=== PATIENT | female | born 1955 | race Caucasian/White ===

== ENCOUNTER 2018-03-09 08:15 | Outpatient (CLI) | payer BC, SELFPAY ==
[2018-03-09 09:41] LABS: TSH (W/Ref FT4) 2.02 uIU/mL (0.358-3.74)
[2018-03-10 11:00] LABS: Thyroglobulin Antibody 34 U/mL (<61); Thyroperoxidase Antibody 199 U/mL (<61)
== END 2018-03-09 08:35 ==
PROVIDERS: PCP Family Medicine; Visit Provider Family Medicine
DX: R94.6 Abnormal results of thyroid function studies (principal)
CPT/HCPCS: 36415; 84443; 86376; 86800

== ENCOUNTER 2018-07-30 08:55 | Outpatient (CLI) | payer BC, SELFPAY ==
[2018-07-30 10:37] LABS: HCT 38.1 % (36.0-46.0); HGB 12.6 g/dL (12.0-15.5); Mean Corp. HGB Concentration 33.1 g/dL (32.0-36.0); Mean Corpuscular Hemoglobin 30.8 pg (27.0-33.0); Mean Corpuscular Volume 93.2 fL (80-95); Mean Platelet Volume 10.3 fL (8.0-11.0); Platelet Count 280 x1000/uL (130-400); RBC 4.09 m/cumm (4.00-5.20); RBC Distribution Width 13.2 % (11.7-14.6); White Blood Cell Count 4.14 k/cumm (4.4-10.8)
[2018-07-30 11:23] LABS: Anion Gap 5.7 mmol/L (3-11); BUN 14 mg/dL (7-18); CO2 31.3 mmol/L (21.0-32.0); CREATININE 0.73 mg/dL (0.55-1.02); Calcium 9.5 mg/dL (8.5-10.1); Chloride 99 mmol/L (98-107); Glucose 96 mg/dL (70-100); Potassium 4.7 mmol/L (3.5-5.1); Sodium 136 mmol/L (136-145)
== END 2018-07-30 09:15 ==
PROVIDERS: PCP Family Medicine; Visit Provider Student in an Organized Health Care Education/Training Program
DX: M25.552 Pain in left hip (principal); M16.12 Unilateral primary osteoarthritis, left hip; Z01.818 Encounter for other preprocedural examination
CPT/HCPCS: 80048; 85027; 86850; 86900; 86901

== ENCOUNTER 2018-07-30 11:00 | Outpatient (CLI) | payer BC, SELFPAY ==
--- NOTE | 2018-07-30 11:04 | DI.RAD_ITS ---
SYMPTOMS/DIAGNOSIS: PAIN LEFT HIP: Single view of the left hip was requested. Comparison is 12/02/17. There is joint space narrowing and periarticular spurring of the left hip. No dislocation is seen. The soft tissues are unremarkable.
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
== END 2018-07-30 11:20 ==
PROVIDERS: PCP Family Medicine; Visit Provider Physician Assistant Surgical
DX: M25.552 Pain in left hip (principal); M16.12 Unilateral primary osteoarthritis, left hip
CPT/HCPCS: 73501

== ENCOUNTER 2018-08-06 09:47 | Inpatient (IN) | payer BC, SELFPAY ==
[2018-08-06] VITALS (12 sets, daily range): BP systolic 106–154; BP diastolic 53–75; PULSE 58–87; RESP 12–19; TEMP 35.6–36.8; O2SAT 94–98
[2018-08-06] MEDS: oxyCODONE-CR 10 MG TABCR PO (10:01)
[2018-08-06] MEDS: Lactated Ringers 1,000 ML 80 ML IV ×2 (10:01→15:52)
[2018-08-06] MEDS: Celecoxib 200 MG CAP 400 MG PO (10:01)
[2018-08-06] MEDS: Acetaminophen 500 MG TAB 1000 MG PO ×3 (10:01→23:09)
--- NOTE | 2018-08-06 10:16 | DI.RAD_ITS ---
SYMPTOMS/DIAGNOSIS: PRIMARY OA LEFT HIP C-ARM FLUOROSCOPY: Fluoroscopy Time: 44.6secs Fluoroscopy was provided in the OR for Dr. Tracy. Hardcopy images show placement of a left hip prosthesis. The components appear well aligned.
[2018-08-06] MEDS: Bupivacaine 0.25% Pres-Free 30 ML VIAL (13:40)
[2018-08-06] MEDS: Ketorolac 30 MG/ML VIAL (13:40)
[2018-08-06] MEDS: Normal Saline 50 ML (13:40)
--- NOTE | 2018-08-06 14:37 | DI.RAD_ITS ---
SYMPTOMS/DIAGNOSIS: S/P LT GREG PELVIS: The exam was performed portably. The patient is now status post placement of a left hip prosthesis. The components appear well aligned.
[2018-08-06] MEDS: Normal Saline Flush 10 ML SYR IV (15:49)
--- NOTE | 2018-08-06 16:43 | PT.INIE ---
Date of service: 08/06/18 Time of Service: 16:10 PT Notes Inpatient Physical Therapy Evaluation Date: 08/06/2018 Referring Doctor: Dr. Tracy PT Orders: PT CONSULT: Status post left anterior GREG Precautions: Weightbearing as tolerated left lower extremity Patient Profile/Admitting Diagnosis: Patient admitted status post left anterior GREG performed this morning. Orders for up out of bed this afternoon. PMHX: Hyperthyroidism; vitamin D deficiency; insomnia; discoid lupus erythamatosus; hypertension Social History/Home Situation: Patient lives with her in [place]. Her home has 3 steps to enter. 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 Equipment Owned/DME: FW W, axillary crutches, cane Subjective: Clear states that she is feeling well. She continues to have some numbness through the left buttock, and is anxious to try walking. She states that she has a great deal of equipment at home due to her 's recent recovery from Guyon Yanes? syndrome, and she has made adjustments at home to address his change in mobility needs. Objective: General Observation: Resting comfortably in bed. Patient has a Abebe catheter in place. IV in right upper extremity. Mental Status: A and O x3 Pain: 0/10 ROM: Right Upper Extremity: WFL Left Upper Extremity: WFL Right Lower Extremity: WFL Left Lower Extremity: Patient functionally demonstrates hip flexion to 80+ degrees, abduction to 30 degrees. Strength: Right Upper Extremity: Grossly 5/5 Left Upper Extremity: Grossly 5/5 Right Lower Extremity: Hip Flexion 5/5. Quads 5/5. Ankle dorsiflexion 5/5. Left Lower Extremity: Quads 3/5 or greater. Ankle dorsiflexion 3/5 or greater. Resisted strength assessment was not performed due to acute postoperative status. Sensation: Intact distally Bed Mobility/Transfers: Supine to sit: Supervision with head of bed at 30 degrees Sit to stand: Supervision Stand to sit supervision with cues for safety Bed to chair: Supervision with FW W Gait: Patient ambulates 50 feet with FW W, CG, WBAT left lower extremity. She requires cues for equipment management and safety. Balance: Static Sitting: Normal Dynamic Sitting: Normal Static Standing: Good Dynamic Standing: Fair Special Tests: Mobility Limitations Standardized Measure [facility] 6 clicks Basic Mobility Inpatient Short Form: Raw Score: 19 CMS Score: 42% deficit Informed Consent/Education: Patient instructed in purpose of PT consult and plan of care. She received early gait training, and instruction in an independent exercise program for completion between PT sessions (glutes sets and L AQ). Assessment: Patient is a 63 year old female referred to physical therapy services with the diagnosis of left hip OA, status post anterior GREG performed 08/06/2018. Patient presents with clinical signs and symptoms consistent with acute postoperative status, as demonstrated by the following impairment level findings: 1. Decreased functional strength of left lower extremity 2. Gait impairments 3. Decreased balance 4. Decreased activity tolerance Impairments are contributing to the following functional limitations: 1. Decreased independence with transfers 2. Decreased tolerance to household distance ambulation 3. Unable to manage stairs Patient is assessed as a Low [id number] complexity based on the following: History: 63-year-old female with left hip OA, status post left anterior GREG performed earlier today. Medical history is noncontributory. Examination: Functional limitations as noted above Presentation: Stable low complexity Decision Making: Goals: Goals X1 week 1. Supine-Sit: Supervision with head of bed flat 2. Sit-Supine Supervision with head of bed flat 3. Sit-Stand : supervision 4. Stand-Sit : supervision 5. Bed-Chair supervision with FW W supervision with FW W 6. Chair-Bed 7. Gait: Supervision with FW W times 100 feet: 8. Stairs :Patient able to manage therapeutic stairs x3 with unilateral upper extremity support to rail and supervision Plan of Care/Treatment Plan: 1-2x/day, 7 days/week x 1 week. Plan of care has been reviewed with the SLICING MACHINE OPERATOR providing the service under Physical Therapy direction. Initiate Physical Therapy intervention for strengthening, bed mobility, transfers, gait, stairs, balance training, use of assistive device. DISCHARGE RECOMMENDATIONS: Home, with no equipment needs anticipated TREATMENT CODE/TIME: 1610?1635 ([id number]) Aminta Aflonso, PT, DPT [facility]
--- NOTE | 2018-08-06 16:49 | IN_ITS ---
Date of service: 08/06/18 Time of Service: 16:10 PT Notes Inpatient Physical Therapy Evaluation Date: 08/06/2018 Referring Doctor: Dr. Tracy PT Orders: PT CONSULT: Status post left anterior GREG Precautions: Weightbearing as tolerated left lower extremity Patient Profile/Admitting Diagnosis: Patient admitted status post left anterior GREG performed this morning. Orders for up out of bed this afternoon. PMHX: Hyperthyroidism; vitamin D deficiency; insomnia; discoid lupus erythamatosus; hypertension Social History/Home Situation: Patient lives with her in [place]. Her home has 3 steps to enter. 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 Equipment Owned/DME: FW W, axillary crutches, cane Subjective: Clear states that she is feeling well. She continues to have some numbness through the left buttock, and is anxious to try walking. She states that she has a great deal of equipment at home due to her 's recent recovery from Guyon Yanes? syndrome, and she has made adjustments at home to address his change in mobility needs. Objective: General Observation: Resting comfortably in bed. Patient has a Abebe catheter in place. IV in right upper extremity. Mental Status: A and O x3 Pain: 0/10 ROM: Right Upper Extremity: WFL Left Upper Extremity: WFL Right Lower Extremity: WFL Left Lower Extremity: Patient functionally demonstrates hip flexion to 80+ degrees, abduction to 30 degrees. Strength: Right Upper Extremity: Grossly 5/5 Left Upper Extremity: Grossly 5/5 Right Lower Extremity: Hip Flexion 5/5. Quads 5/5. Ankle dorsiflexion 5/5. Left Lower Extremity: Quads 3/5 or greater. Ankle dorsiflexion 3/5 or greater. Resisted strength assessment was not performed due to acute postoperative status. Sensation: Intact distally Bed Mobility/Transfers: Supine to sit: Supervision with head of bed at 30 degrees Sit to stand: Supervision Stand to sit supervision with cues for safety Bed to chair: Supervision with FW W Gait: Patient ambulates 50 feet with FW W, CG, WBAT left lower extremity. She requires cues for equipment management and safety. Balance: Static Sitting: Normal Dynamic Sitting: Normal Static Standing: Good Dynamic Standing: Fair Special Tests: Mobility Limitations Standardized Measure [facility] 6 clicks Basic Mobility Inpatient Short Form: Raw Score: 19 CMS Score: 42% deficit Informed Consent/Education: Patient instructed in purpose of PT consult and plan of care. She received early gait training, and instruction in an independent exercise program for completion between PT sessions (glutes sets and L AQ). Assessment: Patient is a 63 year old female referred to physical therapy s jorge with the diagnosis of left hip OA, status post anterior GREG performed 08/06/2018. Patient presents with clinical signs and symptoms consistent with acute postoperative status, as demonstrated by the following impairment level findings: 1. Decreased functional strength of left lower extremity 2. Gait impairments 3. Decreased balance 4. Decreased activity tolerance Impairments are contributing to the following functional limitations: 1. Decreased independence with transfers 2. Decreased tolerance to household distance ambulation 3. Unable to manage stairs Patient is assessed as a Low [id number] complexity based on the following: History: 63-year-old female with left hip OA, status post left anterior GREG performed earlier today. Medical history is noncontributory. Examination: Functional limitations as noted above Presentation: Stable low complexity Decision Making: Goals: Goals X1 week 1. Supine-Sit: Supervision with head of bed flat 2. Sit-Supine Supervision with head of bed flat 3. Sit-Stand : supervision 4. Stand-Sit : supervision 5. Bed-Chair supervision with FW W supervision with FW W 6. Chair-Bed 7. Gait: Supervision with FW W times 100 feet: 8. Stairs :Patient able to manage therapeutic stairs x3 with unilateral upper extremity support to rail and supervision Plan of Care/Treatment Plan: 1-2x/day, 7 days/week x 1 week. Plan of care has been reviewed with the DIRECTOR COMPENSATION providing the service under Physical Therapy direction. Initiate Physical Therapy intervention for strengthening, bed mobility, transfers, gait, stairs, balance training, use of assistive device. DISCHARGE RECOMMENDATIONS: Home, with no equipment needs anticipated TREATMENT CODE/TIME: 1610?1635 ([id number]) Aminta Alfonso, PT, DPT [facility]
--- NOTE | 2018-08-06 16:51 | NUR.NOTE ---
Nursing Note: Patient arrived to Med/surg via stretcher and admitted to room 206 at 1515
[2018-08-06] MEDS: Nicotine 14 MG/24 HR PATCH TD (17:13)
[2018-08-06] MEDS: Docusate Sodium 100 MG CAP PO (18:30)
[2018-08-06] MEDS: oxyCODONE 5 MG TAB PO (18:31)
[2018-08-06] MEDS: Aspirin E.C. 81 MG TABEC PO (19:13)
[2018-08-06] MEDS: Fluticasone NASAL SPRAY 16 GM BTL NS (19:13)
[2018-08-06] MEDS: Celecoxib 100 MG CAP 200 MG PO (19:14)
--- NOTE | 2018-08-06 21:13 | ROE_ITS ---
Date of service: 08/06/18 Time of Service: 15:04 Operative Note DATE OF PROCEDURE: 08/06/18 PRE-OP DIAGNOSIS: Left Hip Osteoarthritis POST-OP DIAGNOSIS: same PROCEDURE: Left Anterior Total Hip Arthroplasty SURGEON: Harlan Tracy PACKAGE SEALER: Kevin Lorenzo ANESTHESIA: GETA and spinal ESTIMATED BLOOD LOSS: 250 PATHOLOGY: none sent COMPLICATIONS: None Patient was transported to: PACU Patient's condition: stable Implants: 1. Depuy [place] Acetabular Component, 52 mm 2. Depuy Acetabular Liner, 52 x 36 mm 3. Depuy Corail coxa vara femoral Stem, Size 11 4. Depuy Altrx Ceramic Femoral Head, Size 36+1.5mm Indications: I have seen Alejandra in clinic for symptoms of hip arthritis, confirmed with radiographic findings. She has exhausted nonoperative methods and was having significant limitations in daily function and desired better function and less pain. I discussed the technical details of a hip replacement. I explained the risks of the procedure to include, but not limited to, bleeding, infection, pain, stiffness, fracture, damage to nerves and vessels, damage to muscles and tendons, loosening, instability, leg length inequality, need for repeat procedure, blood clot and cardiopulmonary demise. Despite these risks, Alejandra elected to proceed. Findings: There was significant signs of arthritis throughout the hip. Procedure Description: Alejandra was greeted in the preoperative holding area where the correct side was identified and marked. The consent was reviewed with the patient and signed. The history and physical was updated. All questions were answered. She was taken back to the operating room. A spinal anesthestic was then administered. The patient was placed into the supine position on the operating room table. The patient was then positioned onto the ARCH table. Both feet were wrapped with Webrill cotton wrap along with Coban. The feet were placed in specialized boots for the ARCH table, well seated within the boot and secured. SCDs were applied. The patient was then slid down onto a peroneal post and the nonoperative leg was secured in a leg edgar attached to the table. The operative side was placed into the ARCH table attachment and bed height and positioning was secured. A preoperative AP pelvis was obtained to serve as a reference for determining leg lengths. Prophylactic antibiotics in the form of cefazolin were administered. 1g of Tranxemic Acid was given intravenously within 30 minutes of incision. The left leg was then prepped with Chloraprep and draped in a standard fashion with a large shower-curtain type drape with Iodine impregnated skin protection. A timeout to confirm correct identity, side and site, procedure, allergies, anesthesia, and medical concerns was performed. An obliquely oriented incision was made starting lateral to the ASIS and running distal over the Tensor Fascia Ct (TFL) muscle belly toward the fibular head, approximately 10cm. The skin and soft tissue was dissected sharply, through Miesha?s fascia, and to the fascia of the TFL. With the fascia and superior border of the IT band identified, the fascia was incised with a new knife just above any perforators from the IT band. The TFL muscle belly was bluntly dissected away from the fascia and moved laterally. The fat between TFL and rectus was identified to ensure the dissection was not within the TFL. Blunt dissection created space between abductors and the capsule and retractor was placed over the lateral femoral neck. The fibers of the rectus femoris tendon were identified and these were freed from the anterior capsule. A second cobra retractor was placed around the medial femoral neck. The TFL was further retracted laterally to show the deep fascia. Careful dissection through this layer identified three main crossing vessels of the lateral femoral circumflex. These were cauterized in multiple locations and then cut without any noticeable bleeding. While there is not any significant motion or signs of pain at the time of the incision there was a noticeable contraction of some the proximal hip musculature at this time. Therefore, she was converted to a general anesthetic. The TFL was further released bluntly from the deep fascia to expose anterior hip capsule and fat the Tigre orthopaedic retractor was then placed beneath the TFL and against sartorius and medial soft tissues to protect and retract the soft tissues. A T-capsulotomy was then performed starting at the superior lateral acetabulum and moving distally to the intertrochanteric ridge. These capsular flaps were tagged with a No. 1 Ethibond and elevated from within. The capsular flaps were released to the shoulder of the lateral neck and to the lesser trochanter to give excellent visualization of the proximal femur. A neck osteotomy was performed using an oscillating saw based on preoperative templates. This cut started in the shoulder and of the lateral neck and exited medially. The saw was at all times directed medially to avoid injury to the greater trochanter. 6cm of traction was applied to the leg and the osteotomy opened. The femoral head was removed with a corkscrew, making sure to protect the TFL on its exit. This was measured on the back table to determing the starting reamer size. Portions of the rectus obscuring visualization were minimally elevated off the superior acetabulum. An anterior retractor was placed over the anterior wall between capsule and labrum. A posterior retractor was placed similarly. This provided excellent visualization. The contents of the cotyloid fossa were removed with electrocautery and the labrum was removed with a knife. There was significant chondromalacia of the superior acetabulum. Acetabular reaming began with a 44 mm reamer. This first reaming was directed anterior to posterior and medial to get down to the true floor. This was inspected and reamed until the true floor was reached. I then reamed sequentially up to a 51 mm reamer where good fit was obtained. The larger reamers were oriented based on anatomical reference of the anterior and lateral tellez to ensure proper abduction and anteversion. Positioning and size was confirmed with the fluoroscopy. A 52 mm Depuy [place] acetabular component was selected. The acetabulum was reamed around the periphery with the selected acetabular size to prevent a rim fit. The deep tissues were irrigated. The acetabular component was then impacted in a position of about 40-45 degrees of abduction and 15-20 degrees of anteversion, using the patient?s anatomy as the ultimate landmark. Fluoroscopy was used to confirm this. There was excellent recruitment coordinator of the acetabular component and the inserting handle was removed. On the fluoroscopy there appeared that the cup was not fully seated. However, this was inspected visually and there was no gap between the floor of the acetabulum and the back of the acetabular component. The acetabular liner, Depuy 52 x 36 mm polyethylene liner, was inserted and lined up with the tines of the acetabular component. There was no soft tissue interposition. The liner was then impacted into position and confirmed to be well-seated. A portion of the jamir-articular cocktail was then injected around the acetabulum into the capsule and periosteum. This cocktail consisted of 50cc of 0.25% Bupivicaine and 20cc of Exparel, expanded to a total of 120cc. Traction was released from the femur. The leg was rotated to 120 degrees. Any remaining medial capsule was released until the lesser trochanter was easily palpable. A Mendez retractor was placed medially. The lateral capsule was f urther released into the shoulder to allow access to the greater trochanter. A Mendez retractor was placed over the greater trochanter which allowed the trochanter to flip in front of the capsule for excellent exposure. The leg was brought down into maximal extension and 20 degrees of adduction while ensuring there was no impingement on the acetabulum. Any remnant capsule within the trochanter was released. Piriformis and obturator externis were identified and protected. There was excellent access to the proximal femur. The lateral neck remnant was removed with a rongeur. A blunt canal probe was used to identify the canal and trajectory for later broaching. A box osteotome initiated the broach course. A small curved rasp and a curved curette were used to work laterally. Broaching then began with a size 8 Corail broach. This was inserted manually around the trochanter and into the canal before mallet blows. The broach was seated to a few millimeters below the cut level based on the neck cut and the preoperative template. Sequential broaching was continued until a tight fit was obtained with good rotational control of the femur. A trial coxa vara neck was inserted along with a +1.5 trial head. The leg was brought out of extension and adduction and then reduced with traction and internal rotation. The leg was stable anteriorly in a position of 30 degrees of extension and 90 degrees of external rotation. Fluoroscopy was used to ensure there was no fracture and the stem was seated well. Leg lengths were checked with an AP pelvis and pelvic reference points. Once content with the desired offset and leg lengths, the leg was brought back into extension, external rotation and adduction. The periosteum and surrounding tissue was injected with remaining portion of the jamir-articular cocktail. The proximal femur was irrigated as well as the deep tissues. The Depuy Corail coxa vara stem, size 11, was then manually inserted into the proximal femur making sure to control rotation. It was then malleted into position with light blows, giving breaks to allow bone expansion and decrease risk of fracture. The selected Depuy Altrx Ceramic Head, size 36 mm, was then placed onto the clean and dry trunnion and secured with impaction onto the tapered fit. The leg was brought back out of extension and adduction and reduced with traction and internal rotation. Stability was confirmed with no shuck at 90 degrees of external rotation and 30 degrees of extension. No impingement through range of motion arc. Final x-ray images were obtained with fluoroscopy to confirm adequate positioning and no intraoperative fracture. The deep tissues were thoroughly irrigated with a pulse lavage. The second dose of TXA 1g was administered intravenously. The capsule was then reapproximated with the previously placed Ethibond sutures. The TFL fascia was finally closed with a No. 2 Stratafix, barbed suture. Deep tissues were then reapproximated with 0 Vicryl and a running 2-0 Vicryl. The skin was closed with a running 4-0 Monocryl in a subcuticular fashion. This was reinforced with skin glue. A Mepilex silver dressing was applied. At the end of the case, all counts were correct. Alejandra was transferred to the hospital bed without difficulty and suffering no apparent complication. She has a good prognosis. Physical therapy will start today and without restrictions, weight-bearing as tolerated. Aspirin 81mg BID will be used for DVT prophylaxis.
[2018-08-07 03:35] VITALS: BP 144/69; PULSE 77; RESP 18; TEMP 36.7; O2SAT 96
[2018-08-07 07:35] VITALS: BP 164/74; PULSE 74; RESP 16; TEMP 36.5; O2SAT 98
[2018-08-07] MEDS: Celecoxib 100 MG CAP 200 MG PO (07:54)
[2018-08-07] MEDS: Aspirin E.C. 81 MG TABEC PO (07:54)
[2018-08-07] MEDS: Lisinopril 20 MG TAB PO (07:54)
[2018-08-07] MEDS: Folic Acid 1 MG TAB PO (07:54)
[2018-08-07] MEDS: Acetaminophen 500 MG TAB 1000 MG PO (07:54)
[2018-08-07] MEDS: Pantoprazole 40 MG TABCR PO (07:54)
[2018-08-07] MEDS: Fluticasone NASAL SPRAY 16 GM BTL NS (07:55)
--- NOTE | 2018-08-07 09:23 | PDOC.CMIN ---
Care Management Initial Assess REASON FOR HOSPITALIZATION:: L Hip Osteoarthritis PAST MEDICAL HISTORY/PAST SURGICAL HISTORY:: Medical:Vitamin D deficiency (Chronic 06/18/08),Smoker (Chronic), Shingles (Resolved 03/03/16), Primary osteoarthritis of left hip (Chronic 12/02/17). Insomnia (Chronic), Glaucoma (Chronic 07/16/15), Discoid lupus erythematosus (Chronic 06/18/08), Cervical pain (neck) (Chronic 07/16/15). Benign hypertension (Chronic 08/17/12), Allergy (Chronic 01/08/15), Benign neoplasm of ovary (Resolved), Breast lump (Resolved), History of tobacco use (Resolved), Menopausal syndrome (Resolved), Shoulder pain (Resolved). Surgical: H/O hysterectomy for benign disease (Acute), H/O ovarian cystectomy (Resolved), History of hysterectomy for benign disease (Resolved). section (Resolved), H/O section (Resolved) PREVIOUS FUNCTIONAL STATUS/SOCIAL/FAMILY SUPPORTS:: Independent at baseline. Currently working correction officer as an educator. Lives with her at their home in [place]. CURRENT FUNCTIONAL STATUS:: Ambulating in hallway with PT. States she is doing very well and has little pain. Reports that she had been going to the gym and worked on strengthening to get ready for this surgery and feels is it has helped. ADVANCE DIRECTIVES:: None on file Has patient been provided with information about the portal?: No Did the patient sign up for the portal?: No CODE STATUS:: Full Code INSURANCE COVERAGE / FINANCIAL ISSUES:: BC/BS CURRENT HOME/COMMUNITY SERVICES/EQUIPMENT:: Has raised toilet seat, FWW and a cane. Has been attending [facility] and Mary is her Therapist. PRIMARY CARE PHYSICIAN:: [facility] Medical: Silvia Nath MD POTENTIAL DISCHARGE NEEDS:: OP PT at [facility], Follow up appointments with PCP and Surgeon. PATIENT/FAMILY EDUCATION NEEDS:: Discharge instructions. ANTICIPATED BARRIERS TO DISCHARGE:: None identified TRANSPORTATION:: Private car PLAN:: Alejandra will return home when medically cleared for discharge. She has all of the equipment needed already at home. Preference is for outpatient PT at [facility] in [place] and a referral will be needed. , Sampson, will transport. Readmission - Within the Past 30 Days Yes or No: N
--- NOTE | 2018-08-07 10:10 | INITIAL_ITS ---
Care Management Initial Assess REASON FOR HOSPITALIZATION:: L Hip Osteoarthritis PAST MEDICAL HISTORY/PAST SURGICAL HISTORY:: Medical:Vitamin D deficiency (Chronic 06/18/08),Smoker (Chronic), Shingles (Resolved 03/03/16), Primary osteoarthritis of left hip (Chronic 12/02/17). Insomnia (Chronic), Glaucoma (Chronic 07/16/15), Discoid lupus erythematosus (Chronic 06/18/08), Cervical pain (neck) (Chronic 07/16/15). Benign hypertension (Chronic 08/17/12), Allergy (Chronic 01/08/15), Benign neoplasm of ovary (Resolved), Breast lump (Resolved), History of tobacco use (Resolved), Menopausal syndrome (Resolved), Shoulder pain (Resolved). Surgical: H/O hysterectomy for benign disease (Acute), H/O ovarian cystectomy (Resolved), History of hysterectomy for benign disease (Resolved). section (Resolved), H/O section (Resolved) PREVIOUS FUNCTIONAL STATUS/SOCIAL/FAMILY SUPPORTS:: Independent at baseline. Currently working stamping operator as an educator. Lives with her at their home in [place]. CURRENT FUNCTIONAL STATUS:: Ambulating in hallway with PT. States she is doing very well and has little pain. Reports that she had been going to the gym and worked on strengthening to get ready for this surgery and feels is it has helped. ADVANCE DIRECTIVES:: None on file Has patient been provided with information about the portal?: No Did the patient sign up for the portal?: No CODE STATUS:: Full Code INSURANCE COVERAGE / FINANCIAL ISSUES:: BC/BS CURRENT HOME/COMMUNITY SERVICES/EQUIPMENT:: Has raised toilet seat, FWW and a cane. Has been attending [facility] and Mary is her Therapist. PRIMARY CARE PHYSICIAN:: [facility] Medical: Silvia Nath MD POTENTIAL DISCHARGE NEEDS:: OP PT at [facility], Follow up appointments with PCP and Surgeon. PATIENT/FAMILY EDUCATION NEEDS:: Discharge instructions. ANTICIPATED BARRIERS TO DISCHARGE:: None identified TRANSPORTATION:: Private car PLAN:: Alejandra will return home when medically cleared for discharge. She has all of the equipment needed already at home. Preference is for outpatient PT at [facility] in [place] and a referral will be needed. , Sampson, will transport. Readmission - Within the Past 30 Days Yes or No: N
[2018-08-07] MEDS: oxyCODONE 5 MG TAB PO (10:35)
--- NOTE | 2018-08-07 11:23 | PT.INTREAT ---
Date of service: 08/07/18 Time of Service: 09:00 PT Notes Inpatient Physical Therapy Treatment Note [facility] Date: 08/07/18 PRECAUTIONS:WBAT on left SUBJECTIVE: Indicated she suffers from AGUILAR often. Has one today that she thinks is due to not sleeping well. Stated she was warned that she may experience a AGUILAR today by hospital staff prior to surgery. Stated that her left leg feels longer than the right. OBJECTIVE: PAIN: Tolerable. Surprised hip feels so good today with walking and stairs activity. BED MOBILITY/TRANSFERS Supine-sit: SBA Sit-supine: SBA Sit-stand: SBA Stand-sit: SBA GAIT Assistive Device: FWW Weight bearing: WBAT on left Assist: CGA Distance: 20' x2 and 75' x 1 Up/ down 2-6 inch and 3-4 inch stairs with one hand rail and one cane with SBA. Has crutches at home, is to bring them in with him. Did not arrive prior to writing of this note. Indicated she feels good about using crutches, practiced with them prior to admission and plans to use walker anyway. THEREX: Reviewed HEP as per protocol. Able to demonstrate all supine and seated exercises while in PT dept today. See flow sheet for details. ASSESSMENT: Tolerated today's session well, despite AGUILAR pain. PLAN: Hopes to be discharged from hospital today. Feels she will eat and sleep better there. TREATMENT CODE/TIME: 9:00 to 9:30 (30'), TP x 1, TA x 1
--- NOTE | 2018-08-07 11:47 | W.PM.DS.N ---
Date of service: 08/07/18 Time of Service: 11:47 DS: Diagnosis Discharge Diagnosis (1) Primary osteoarthritis of left hip: Status: Chronic Discharge Plan Disposition Patient Disposition: HOME Condition: Good Discharge Details Reason For Visit: LEFT HIP DJD Admit Date/Time: 08/06/18 09:47 Admit Provider: Harlan Tracy Attending Provider: Harlan Tracy Primary Care Provider: Silvia Nath Hospital Course Hospital Course: Patient was admitted to the medical/surgical floor following the procedure. It was tolerated well without any notable medical, surgical, or anesthetic complications. Mobilization began postoperatively. The valente catheter was removed and voiding spontaneously. Vitals were stable. Physical therapy worked with the patient and was cleared for discharge home. No acute medical issues. She did have concerns that her left leg was olonger than the right. I scrutinized the x-ray and the exam and she does appear to be about 4-5mm longer. Home Meds and New Rx's Prescriptions: New celecoxib 200 mg capsule 200 mg PO BID PRN (Reason: pain) Qty: 60 RF: 1 acetaminophen 500 mg tablet 1,000 mg PO Q8H PRN (Reason: pain) Qty: 90 RF: 3 oxycodone 5 mg tablet 5 mg PO Q4H Qty: 18 RF: 0 aspirin [Aspir-Low] 81 mg tablet,delayed release (DR/EC) 81 mg PO BID Qty: 60 RF: 0 Continued fluticasone propionate [Flonase Allergy Relief] 50 mcg/actuation spray,suspension 2 spray HERSON BID RF: 0 cholecalciferol (vitamin D3) 1,000 UNIT capsule 1,000 unit PO DAILY RF: 0 lidocaine [Lidoderm] 1 EACH adhesive patch,medicated 1 ea Topical DAILY PRNQty: 30 RF: 12 folic acid 1 MG tablet 1 mg PO DAILY RF: 0 lisinopril 20 mg tablet 20 mg PO DAILY Qty: 90 RF: 11 clotrimazole 1 % Cream 1 applic TOPICAL BID PRNRF: 0 brimonidine 0.2 % Drops 1 drp OPHTHALMIC (EYE) BID RF: 0 Discharge Instructions Additional Instructions: Dr. Tracy?s Total Hip Discharge Instructions Activity: The most important activity is to walk. You should try to take short walks a few times a day. You have no restrictions on movement or positioning, but do not try to force what you do. You will find some stiffness and weakness with hip flexion (lifting your knee). Do not try to strengthen this too early, continue to practice walking and stairs and this will come. - Outpatient physical therapy can be helpful to help return you to a normal gait and improve your flexibility and strength. This can start around 2 weeks. For some patients, it?s not necessary. Usually this is determined at the time of discharge or at the first post-operative visit. - You should wear the BENJI hose on both legs for 4 weeks. Dressing: Keep the surgical dressing in place for at least one week. After the first week it may be removed and replace with light gauze and tape or nothing. It may get wet after 3 days but avoid soaking the dressing. If it gets wet, just lightly pat dry. It is important to always keep some gauze between skin folds, especially when you are sitting. Spend some time with the wound exposed when you are lying flat as the incision does wrinkle onto itself. Medications: - You should take Tylenol and an anti-inflammatory Celebrex as your primary pain control medications - You may also take Tylenol PM at night to help with sleep, but do not exceed 4000mg of Tylenol in a day - You have been prescribed a stronger pain medication Oxycodone for breakthrough pain, take as needed as prescribed. - You will be taking Aspirin 81mg twice a day for DVT prevention unless instructed otherwise. - If you have constipation you should take Colace or Miralax (both [id number]). It takes most people 3-4 days to have a bowel movement. Follow-up: 2 weeks Referrals: Harlan Tracy MD [ [facility] STAFF PHYSICIAN] - Activity:: Activity as Tolerated Equipment/Supplies:: No Equipment Needed Diet:: As Tolerated Discharge Orders Discharge Orders: Discharge Order (Routine); Ordered 08/07/18 Ordered By: Harlan Tracy DS: Data Vitals/I&O Vitals and I&O: Vital Signs Temperature 36.5 C 08/07/18 07:35 Temperature Source Tympanic 08/07/18 07:35 Pulse 74 08/07/18 07:35 Pulse Rhythm Regular 08/07/18 07:30 Respiratory Rate 16 08/07/18 07:35 Respiratory Effort Non-Labored 08/07/18 07:30 Respiratory Depth Normal 08/07/18 07:30 Respiratory Pattern Normal 08/07/18 07:30 Blood Pressure 164/74 H 08/07/18 07:35 Pulse Oximetry 98 08/07/18 07:35 Respiratory End-tidal CO2 27 08/06/18 14:26 Oxygen Delivery Method Room Air 08/07/18 07:35 Oxygen Flow Rate 0 08/07/18 07:35 Pain Level 6 08/07/18 10:35 Comment 08/07/18 03:35 Intake & Output 08/06/18 08/06/18 08/07/18 11:59 23:59 11:59 Intake Total 110 / 2160 2050 / 2160 1874 / 1874 Output Total 275 / 275 1600 / 1600 Balance 110 / 1885 1775 / 1885 274 / 274 Weight 79.8 kg Intake: IV 110 / 1280 1170 / 1280 964 / 964 Oral 880 / 880 910 / 910 Output: Urine 25 / 25 1600 / 1600 Estimated Blood Loss 250 / 250 Other: Urine Color Yellow Yellow Yellow Urine Appearance Clear Clear Clear Emesis Description Retching PFSH Medical History Vitamin D deficiency (Chronic 06/18/08) Smoker (Chronic) Shingles (Resolved 03/03/16) Primary osteoarthritis of left hip (Chronic 12/02/17) Insomnia (Chronic) Glaucoma (Chronic 07/16/15) Discoid lupus erythematosus (Chronic 06/18/08) Cervical pain (neck) (Chronic 07/16/15) Benign hypertension (Chronic 08/17/12) Allergy (Chronic 01/08/15) Benign neoplasm of ovary (Resolved) Breast lump (Resolved) History of tobacco use (Resolved) Menopausal syndrome (Resolved) Shoulder pain (Resolved) Surgical History Hx of ovarian cystectomy (Acute) History of section (Chronic) section (Resolved) H/O section (Resolved) H/O ovarian cystectomy (Resolved) History of hysterectomy for benign disease (Resolved) Family History Mother Diabetes Essential hypertension Stroke Father Heart disease Brother Alcohol abuse Grandfather No problems noted. Grandfather No problems noted. Grandmother Personal history of malignant neoplasm Grandmother Dementia Son No problems noted. Son No problems noted. Daughter Neoplasm Asthma Daughter Substance abuse Alcohol abuse Social History Smoking/Tobacco Use Status: Current every day Tobacco Type: cigarettes and e-cigarettes Alcohol Intake: current Details: 7 glasses of red wine/week Drug use: Never Substance use type: does not use Pets and animals: Yes Pets and animals: cat(s) and dog(s) Special ezequiel needs: No
--- NOTE | 2018-08-07 12:36 | PDOC.CMDIS ---
LACE Index Scoring Tool - Questions: Length of Stay (in days): 1 Acuity (Admit via E.D.?): No E.D. Visits: 0 - Answers: Total Score: 1 Risk of Readmission: Low Risk Care Management Discharge Reason for Hospitalization: L Hip Osteoarthritis Discharge Plan: Alejandra is returning home. She has all of the needed equipment already in place. Will schedule outpatient PT with [facility] in [place]. will transport by car. Patient/Family Education Needs: Discharge instructions
--- NOTE | 2018-08-07 12:39 | CMDISCH_ITS ---
LACE Index Scoring Tool - Questions: Length of Stay (in days): 1 Acuity (Admit via E.D.?): No E.D. Visits: 0 - Answers: Total Score: 1 Risk of Readmission: Low Risk Care Management Discharge Reason for Hospitalization: L Hip Osteoarthritis Discharge Plan: Alejandra is returning home. She has all of the needed equipment already in place. Will schedule outpatient PT with [facility] in [place]. will transport by car. Patient/Family Education Needs: Discharge instructions
--- NOTE | 2018-08-09 13:01 | PT.INDS ---
Date of service: 08/09/18 PT Notes Inpatient Physical Therapy Discharge Summary Dates: 08/09/2018 Dates of Service: 08/06/2018 through 08/07/18 Referring Doctor: Dr. Tracy PT Orders: PT CONSULT: Status post left anterior GREG Precautions: Weightbearing as tolerated left lower extremity Patient Profile/Admitting Diagnosis: Patient admitted status post left anterior GREG performed this morning. Orders for up and out of bed this afternoon. PMHX: Hyperthyroidism; vitamin D deficiency; insomnia; discoid lupus erythamatosus; hypertension Social History/Home Situation: Patient lives with her in [place]. Her home has 3 steps to enter. 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 Equipment Owned/DME: FW W, axillary crutches, cane This is a summary of the physical therapy care provided for patient on the duration listed above. No charge was made for the documentation of this discharge summary. Subjective: Per PT documentation in the morning of 08/07/2018, patient reported headache during treatment states that her left leg feels longer than her right she hopes to go home today as she feels that she will be able to sleep and eat better at home. Objective: General Observation: NT Mental Status: A and O x3 Pain: 0/10 ROM: Right Upper Extremity: WFL Left Upper Extremity: WFL Right Lower Extremity: WFL Left Lower Extremity: Patient functionally demonstrates hip flexion to 80+ degrees, abduction to 30 degrees. Strength: Right Upper Extremity: Grossly 5/5 Left Upper Extremity: Grossly 5/5 Right Lower Extremity: Hip Flexion 5/5. Quads 5/5. Ankle dorsiflexion 5/5. Left Lower Extremity: Quads 3/5 or greater. Ankle dorsiflexion 3/5 or greater. Resisted strength assessment was not performed due to acute postoperative status. Sensation: Intact distally Bed Mobility/Transfers: Supine to sit: Supervision with head of bed at 30 degrees Sit to stand: Supervision Stand to sit supervision with cues for safety Bed to chair: Supervision with FWW Gait: Per BOX BLANK MACHINE OPERATOR documentation in the morning of 08/06/2018, patient ambulated to 75x1 feet and 20 feet x2 with FWW, CG, WBAT left lower extremity. She requires cues for equipment management and safety. She also tolerated negotiating stairs to 6 inch step and 3 4 inch step with hand holding onto a handrail with one hand and cane on the other, SBA provided Balance: Static Sitting: Normal Dynamic Sitting: Normal Static Standing: Good Dynamic Standing: Fair Special Tests: Mobility Limitations Standardized Measure [facility] AM-PAC 6 clicks Basic Mobility Inpatient Short Form: Raw Score: 19 CMS Score: 42% deficit Assessment: Patient is a 63 year old female referred to physical therapy services with the diagnosis of left hip OA, status post anterior GREG performed 08/06/2018. Patient presents with clinical signs and symptoms consistent with acute postoperative status, as demonstrated by the following impairment level findings: 1. Decreased functional strength of left lower extremity 2. Gait impairments 3. Decreased balance 4. Decreased activity tolerance Impairments are contributing to the following functional limitations: 1. Decreased independence with transfers 2. Decreased tolerance to household distance ambulation 3. Unable to manage stairs Goals: Goals X1 week 1. Supine-Sit: Supervision with head of bed flat MET 2. Sit-Supine Supervision with head of bed flat MET 3. Sit-Stand : supervision MET 4. Stand-Sit : supervision MET 5. Bed-Chair supervision with FW W supervision with FWW MET 6. Chair-Bed supervision MET 7. Gait: Supervision with FWW times 100 feet NOT MET x3 8. Stairs :Patient able to manage therapeutic stairs x3 with unilateral upper extremity support to rail and supervision NOT MET DISCHARGE RECOMMENDATIONS: Home, with no equipment needs anticipated. May benefit from short term PT services to facilitate a smooth transition to home and reduce fall risk. TREATMENT CODE/TIME: NT Thank you for this referral. Lena Alfaro, PT, DPT, CLT [facility]
--- NOTE | 2018-08-09 13:04 | INDS_ITS ---
Date of service: 08/09/18 PT Notes Inpatient Physical Therapy Discharge Summary Dates: 08/09/2018 Dates of Service: 08/06/2018 through 08/07/18 Referring Doctor: Dr. Tracy PT Orders: PT CONSULT: Status post left anterior GREG Precautions: Weightbearing as tolerated left lower extremity Patient Profile/Admitting Diagnosis: Patient admitted status post left anterior GREG performed this morning. Orders for up and out of bed this afternoon. PMHX: Hyperthyroidism; vitamin D deficiency; insomnia; discoid lupus erytham atosus; hypertension Social History/Home Situation: Patient lives with her in [place]. Her home has 3 steps to enter. 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 Equipment Owned/DME: FW W, axillary crutches, cane This is a summary of the physical therapy care provided for patient on the duration listed above. No charge was made for the documentation of this discharge summary. Subjective: Per PT documentation in the morning of 08/07/2018, patient reported headache during treatment states that her left leg feels longer than her right she hopes to go home today as she feels that she will be able to sleep and eat better at home. Objective: General Observation: NT Mental Status: A and O x3 Pain: 0/10 ROM: Right Upper Extremity: WFL Left Upper Extremity: WFL Right Lower Extremity: WFL Left Lower Extremity: Patient functionally demonstrates hip flexion to 80+ degrees, abduction to 30 degrees. Strength: Right Upper Extremity: Grossly 5/5 Left Upper Extremity: Grossly 5/5 Right Lower Extremity: Hip Flexion 5/5. Quads 5/5. Ankle dorsiflexion 5/5. Left Lower Extremity: Quads 3/5 or greater. Ankle dorsiflexion 3/5 or greater. Resisted strength assessment was not performed due to acute postoperative status. Sensation: Intact distally Bed Mobility/Transfers: Supine to sit: Supervision with head of bed at 30 degrees Sit to stand: Supervision Stand to sit supervision with cues for safety Bed to chair: Supervision with FWW Gait: Per DRYING TUMBLER OPERATOR documentation in the morning of 08/06/2018, patient ambulated to 75x1 feet and 20 feet x2 with FWW, CG, WBAT left lower extremity. She requires cues for equipment management and safety. She also tolerated negotiating stairs to 6 inch step and 3 4 inch step with hand holding onto a handrail with one hand and cane on the other, SBA provided Balance: Static Sitting: Normal Dynamic Sitting: Normal Static Standing: Good Dynamic Standing: Fair Special Tests: Mobility Limitations Standardized Measure [facility] AM-PAC 6 clicks Basic Mobility Inpatient Short Form: Raw Score: 19 CMS Score: 42% deficit Assessment: Patient is a 63 year old female referred to physical therapy services with the diagnosis of left hip OA, status post anterior GREG performed 08/06/2018. Patient presents with clinical signs and symptoms consistent with acute postoperative status, as demonstrated by the following impairment level findings: 1. Decreased functional strength of left lower extremity 2. Gait impairments 3. Decreased balance 4. Decreased activity tolerance Impairments are contributing to the following functional limitations: 1. Decreased independence with transfers 2. Decreased tolerance to household distance ambulation 3. Unable to manage stairs Goals: Goals X1 week 1. Supine-Sit: Supervision with head of bed flat MET 2. Sit-Supine Supervision with head of bed flat MET 3. Sit-Stand : supervision MET 4. Stand-Sit : supervision MET 5. Bed-Chair supervision with FW W supervision with FWW MET 6. Chair-Bed supervision MET 7. Gait: Supervision with FWW times 100 feet NOT MET x3 8. Stairs :Patient able to manage therapeutic stairs x3 with unilateral upper extremity support to rail and supervision NOT MET DISCHARGE RECOMMENDATIONS: Home, with no equipment needs anticipated. May benefit from short term PT services to facilitate a smooth transition to home and reduce fall risk. TREATMENT CODE/TIME: NT Thank you for this referral. Lena Alfaro, PT, DPT, CLT [facility]
== END 2018-08-07 13:34 | disposition home or self-care (01) | DRG 470 ==
LOC: PDS 09:48 → MS 15:30
PROVIDERS: Admitting Provider Student in an Organized Health Care Education/Training Program; PCP Family Medicine; Visit Provider Student in an Organized Health Care Education/Training Program
PROC: 0SRB04A Replacement of Left Hip Joint with Ceramic on Polyethylene Synthetic Substitute, Uncemented, Open Approach (ICD-10-PCS; CPT 27130; principal; 2018-08-06 11:00)
DX: M16.12 Unilateral primary osteoarthritis, left hip (principal); Z96.642 Presence of left artificial hip joint; M62.452 Contracture of muscle, left thigh; F17.210 Nicotine dependence, cigarettes, uncomplicated; L93.0 Discoid lupus erythematosus; I10 Essential (primary) hypertension; E55.9 Vitamin D deficiency, unspecified
CPT/HCPCS: 27130; 97110; 97161; 97530; NC; 72170; 73501; J0690; J1100; J1885; J2250; J2405

== ENCOUNTER 2018-08-23 11:04 | Outpatient (CLI) | payer BC, SELFPAY ==
--- NOTE | 2018-08-23 10:57 | DI.RAD_ITS ---
SYMPTOMS/DIAGNOSIS: FIRST POSTOP LEFT TOTAL HIP ARTHROPLASTY LEFT HIP AND PELVIS: Three views were obtained. There is a total hip joint replacement in position on the left. Components appear well seated. There are moderate degenerative changes of the right hip.
== END 2018-08-23 11:24 ==
PROVIDERS: PCP Family Medicine; Visit Provider Student in an Organized Health Care Education/Training Program
DX: Z47.1 Aftercare following joint replacement surgery (principal); Z96.642 Presence of left artificial hip joint; M16.11 Unilateral primary osteoarthritis, right hip
CPT/HCPCS: 73502

== ENCOUNTER 2018-09-13 08:03 | Outpatient (CLI) | payer BC, SELFPAY ==
[2018-09-13 10:03] LABS: Cholesterol 208 mg/dL (50-200); HDL Cholesterol 76 mg/dL (40-60); LDL CHOLESTEROL 108 mg/dL (<100); Triglyceride 76 mg/dL (30-150)
== END 2018-09-13 08:23 ==
PROVIDERS: PCP Family Medicine; Visit Provider Family Medicine
DX: I10 Essential (primary) hypertension (principal)
CPT/HCPCS: 36415; 80061; 83721

== ENCOUNTER 2018-11-01 01:37 | Outpatient (CLI) | payer BC, SELFPAY ==
--- NOTE | 2018-11-01 11:30 | DI.MAMMO_ITS ---
SYMPTOM/DIAGNOSIS: SCREENING Z12.31 MAMMOGRAMS: Mammograms were interpreted according to the usual protocol including computer analysis with CAD system, tomosynthesis and C view imaging. Comparison with prior examinations. Breast density B. No suspicious masses or microcalcifications are seen. The biopsy clip is again seen in the upper outer quadrant of the right breast. The skin and axilla are unremarkable. IMPRESSION: No evidence for malignancy. Yearly mammography is recommended. Category 1, breast density B. SA ASSESSMENT OF FINDINGS: Negative. Category 1. Patient will receive a letter notifying them of these results. BI-RADS category B. There are scattered areas of fibroglandular density.
== END 2018-11-01 01:57 ==
PROVIDERS: PCP Family Medicine; Visit Provider Family Medicine
DX: Z12.31 Encounter for screening mammogram for malignant neoplasm of breast (principal)
CPT/HCPCS: 77063; 77067

== ENCOUNTER 2018-11-01 11:38 | Emergency (ER) | payer BC, SELFPAY ==
[2018-11-01] VITALS (59 sets, daily range): BP systolic 81–147; BP diastolic 48–81; PULSE 66–96; RESP 11–26; TEMP 35.9; O2SAT 94–100
[2018-11-01] MEDS: Normal Saline 1,000 ML 1000 ML IV (12:00)
--- NOTE | 2018-11-01 12:12 | W.ED.GENAD ---
Discharge Plan Disposition Patient Disposition: HOME Discharge Details Chief Complaint: Dizzy/Sync Clinical Impression: Pre-syncope Primary Care Provider: Silvia Nath ED Provider: Aarsh Sun Home Meds and New Rx's Prescriptions: Continued fluticasone propionate [Flonase Allergy Relief] 50 mcg/actuation spray,suspension 2 spray HERSON BID RF: 0 cholecalciferol (vitamin D3) 1,000 UNIT capsule 1,000 unit PO DAILY RF: 0 lidocaine [Lidoderm] 1 EACH adhesive patch,medicated 1 ea Topical DAILY PRNQty: 30 RF: 12 folic acid 1 MG tablet 1 mg PO DAILY RF: 0 clotrimazole 1 % Cream 1 applic TOPICAL BID PRNRF: 0 brimonidine 0.2 % Drops 1 drp OPHTHALMIC (EYE) BID RF: 0 acetaminophen 500 mg tablet 1,000 mg PO Q8H PRN (Reason: pain) Qty: 90 RF: 3 Discharge Instructions Instructions: Near Syncope (ED) Additional Instructions: Please rest over the next few days. No exertional activities. Call your doctor tomorrow to arrange timely follow-up this week. You may need additional diagnostic testing. Please contact your primary care physician to arrange follow-up. Return to the ER for any worsening or new concerning symptoms. Referrals: Silvia Nath MD, [place] [Primary Care Provider] - Discharge Data Discharge Date/Time-TO BE ENTERED AT DEPARTURE: 11/01/18 16:54 Medical Decision Making 12:15 --63-year-old female here after episode of sudden onset lightheadedness, presyncope, diaphoresis and nausea. Symptoms now resolved. Screening ECG was reviewed and interpreted by me: Normal sinus rhythm 67 bpm, normal axis, T waves are somewhat peaked laterally, [address] elevation is noted in lead V1 and 1.5 mm lead V2. Patient has no chest pain but consider ACS. Plan to obtain troponin. Will check screening labs including electrolytes and CBC. We will give IV fluid bolus 1 L normal saline. Patient is not tachycardic, saturating well in no respiratory distress. No calf tenderness or pain. She did recently have long distance travel and did experience some shortness of breath with this episode. Consider pulmonary embolism. Patient is low risk by Wells criteria. Will check d-dimer. -- ddimer elevated. plan to ct. -- ct chest interpreted by radiology: Negative --Patient reassessed and is remained stable. Feels much better after IV fluid and eating. Plan for repeat ECG and delta troponin. 16:19 --repeat ECG reviewed and interpreted by me: Normal sinus rhythm 77 bpm, still with persistent ST elevation in V1 and V2 that is unchanged from prior. 16:42 --repeat troponin at 1600 less than 0.02 and unchanged from prior. Patient reassessed and is remained stable. She is able to ambulate around the department without any difficulty. Plan at this time is to have her follow-up with her primary care physician. I have encouraged her to call her PCP tomorrow to arrange timely follow-up later this week at which point consideration can be made for additional diagnostic testing. Disposition decision was made weighing the risks and benefits of hospitalization versus outpatient treatment, the risk for further decompensation, and the patient's wishes. The patient was stable and requested discharge. Prior to discharge, my usual and customary return precautions were reviewed with the patient - this included follow-up instructions and reason to return to the emergency department if condition worsens, does not improve as expected, or other new concerns arise. HPI General Mode of arrival: ambulatory. Date/Time Provider Initiated Documentation: 11/01/18 11:48. Limitations to Documentation: no limitations. Information obtained by: patient. HPI Narrative: 63-year-old female presents with chief complaint of dizziness. Patient was here having a routine outpatient mammogram and suddenly developed lightheadedness. She felt like she was going to pass out. She had associated diaphoresis and nausea and SOB. Symptoms were severe. Symptoms lasted a few minutes. Resting and drinking some water seem to help. She denies associated chest pain. Of note patient had similar less severe symptoms while driving about 3 days ago. Patient denies associated chest pain with that episode as well. No associated leg swelling or calf pain. Related Data Home Medications Medication Instructions Recorded Confirmed cholecalciferol (vitamin D3) 1,000 unit PO DAILY 09/12/13 11/02/18 lidocaine [Lidoderm] 1 ea TOPICAL DAILY PRN #30 patch 03/09/17 11/02/18 folic acid 1 mg PO DAILY tab-cap 03/19/17 11/02/18 fluticasone propionate 50 2 spray HERSON BID 06/28/18 11/02/18 mcg/actuation nasal spray,suspension brimonidine 1 drp OPHTHALMIC (EYE) BID 07/30/18 11/02/18 clotrimazole 1 applic TOPICAL BID PRN 07/30/18 11/02/18 acetaminophen 1,000 mg PO Q8H PRN #90 tab 08/07/18 11/02/18 Previous Rx's Medication Instructions Recorded acetaminophen 1,000 mg PO Q8H PRN #90 tab 08/07/18 Allergies Allergy/AdvReac Type Severity Reaction Status Date / Time hydroxychloroquine Allergy Intermediate Hives, Verified 11/02/18 14:05 General Stated Complaint: Dizzy/Sync ELIZA: 2 Review of Systems Review of Systems All systems reviewed & are unremarkable except as noted in HPI and below PFSH Medical History Alcohol intake above recommended sensible limits (Chronic) Chronic ethmoidal sinusitis (Chronic 01/18/18) Chronic sphenoidal sinusitis (Chronic 01/18/18) Joint pain (Chronic 10/22/05) Stress due to illness of family member (Resolved 07/13/17) Vitamin D deficiency (Chronic 06/18/08) Smoker (Chronic) Shingles (Resolved 03/03/16) Insomnia (Chronic) Glaucoma (Chronic 07/16/15) Discoid lupus erythematosus (Chronic 06/18/08) Cervical pain (neck) (Chronic 07/16/15) Benign hypertension (Chronic 08/17/12) Allergy (Chronic 01/08/15) Benign neoplasm of ovary (Resolved) Breast lump (Resolved) History of tobacco use (Resolved) Menopausal syndrome (Resolved) Primary osteoarthritis of left hip (Resolved 12/02/17) Shoulder pain (Resolved) Surgical History History of total left hip replacement (Chronic) Hx of ovarian cystectomy (Acute) History of section (Chronic) section (Resolved) H/O section (Resolved) H/O ovarian cystectomy (Resolved) History of hysterectomy for benign disease (Resolved) Family History Mother Diabetes Essential hypertension Stroke Father Heart disease Brother Alcohol abuse Maternal Grandfather No problems noted. Paternal Grandfather No problems noted. Maternal Grandmother Cervical cancer Paternal Grandmother Dementia Son No problems noted. Son No problems noted. Daughter Asthma [facility] ([place]han's cell histiocytosis) Daughter Substance abuse Alcohol abuse Social History Smoking/Tobacco Use Status: Current every day Tobacco Type: cigarettes and e-cigarettes Tobacco: How many years used: 45 Quit status: has quit before Alcohol Intake: current Alcohol Intake frequency: 3 or more drinks per day Alcohol type: wine Details: 7 glasses of red wine/week Drug use: Never Substance use type: does not use, former substance user and marijuana Household members: spouse Communication Needs: Corrective Lenses Do you need help understanding health information?: Never current occupation: EDUCATOR Pets and animals: Yes Pets and animals: cat(s) and dog(s) Sexually active: No Do you think of yourself as: straight/heterosexual Current gender identity: female What is your relationship status?: How often do you talk on the phone with friends or family?: three or more times per week How often do you get together with friends or relatives?: twice per week How often do you attend hindu or jew services?: decline to answer Do you belong to any clubs or organized social groups?: no Panel score (0-1 are the most socially isolated patients): 2 What type of physical activity do you participate in: none and other Duration: 45-60 minutes/day Frequency: 1-2 times per week Terri/Amish: None Special terri needs: No Seatbelt use: always Drive intox or ride w/intox driver's license reviewing officer: No Do you feel safe at home: Yes Do you feel safe in your relationship?: Yes Exam Const General: cooperative and no acute distress HENVT Head: normocephalic and atraumatic Mouth: moist mucous membranes Eyes Conjunctivae: normal conjunctivae Sclera: normal sclerae EOM: EOM intact bilaterally Neck Neck: trachea midline, supple and no JVD Resp Auscultation: clear to auscultation bilaterally, no rales, no rhonchi and no wheezes Cardio Jugular venous pressure: no JVD Rate: regular rate and not tachycardic Rhythm: regular rhythm GI Palpation: soft, not firm, no guarding, no masses, not rigid and nontender Skin General skin exam: no rashes or lesions noted Neuro General: alert, awake, oriented x3 and tone normal Extrem General: no calf tenderness and no edema Psych Appearance: grossly normal Mental Status: mental status grossly normal Speech and Movement: speech and movement normal Course Vital Signs Respiratory Rate 15 11/01/18 11:37 Pulse Oximetry 98 11/01/18 11:37 Temperature 35.9 C L 11/01/18 11:54 Temperature Source Skin 11/01/18 11:54 Pulse 67 11/01/18 12:01 Pulse 66 11/01/18 12:01 Respiratory Rate 11 L 11/01/18 12:06 Respiratory Effort Non-Labored 11/01/18 12:06 Respiratory Depth Normal 11/01/18 12:06 Respiratory Pattern Normal 11/01/18 12:06 Blood Pressure 124/57 L 11/01/18 12:01 Blood Pressure Mean 74 11/01/18 12:01 Pulse Oximetry 98 11/01/18 12:01 Oxygen Delivery Method Room Air 11/01/18 11:54 Oxygen Flow Rate 0 11/01/18 11:54 Pain Level 0 11/01/18 11:54
--- NOTE | 2018-11-01 12:17 | ED.GENADUL_ITS ---
Discharge Plan Disposition Patient Disposition: HOME Discharge Details Chief Complaint: Dizzy/Sync Clinical Impression: Pre-syncope Primary Care Provider: Silvia Nath ED Provider: Arash Sun Home Meds and New Rx's Prescriptions: Continued fluticasone propionate [Flonase Allergy Relief] 50 mcg/actuation spray,suspension 2 spray HERSON BID RF: 0 cholecalciferol (vitamin D3) 1,000 UNIT capsule 1,000 unit PO DAILY RF: 0 lidocaine [Lidoderm] 1 EACH adhesive patch,medicated 1 ea Topical DAILY PRNQty: 30 RF: 12 folic acid 1 MG tablet 1 mg PO DAILY RF: 0 clotrimazole 1 % Cream 1 applic TOPICAL BID PRNRF: 0 brimonidine 0.2 % Drops 1 drp OPHTHALMIC (EYE) BID RF: 0 acetaminophen 500 mg tablet 1,000 mg PO Q8H PRN (Reason: pain) Qty: 90 RF: 3 Discharge Instructions Instructions: Near Syncope (ED) Additional Instructions: Please rest over the next few days. No exertional activities. Call your doctor tomorrow to arrange timely follow-up this week. You may need additional diagnostic testing. Please contact your primary care physician to arrange follow-up. Return to the ER for any worsening or new concerning symptoms. Referrals: Silvia Nath MD, [place] [Primary Care Provider] - Discharge Data Discharge Date/Time-TO BE ENTERED AT DEPARTURE: 11/01/18 16:54 Medical Decision Making 12:15 --63-year-old female here after episode of sudden onset lightheadedness, presyncope, diaphoresis and nausea. Symptoms now resolved. Screening ECG was reviewed and interpreted by me: Normal sinus rhythm 67 bpm, normal axis, T waves are somewhat peaked laterally, [address] elevation is noted in lead V1 and 1.5 mm lead V2. Patient has no chest pain but consider ACS. Plan to obtain troponin. Will check screening labs including electrolytes and CBC. We will give IV fluid bolus 1 L normal saline. Patient is not tachycardic, saturating well in no respiratory distress. No calf tenderness or pain. She did recently have long distance travel and did experience some shortness of breath with this episode. Consider pulmonary embolism. Patient is low risk by Wells criteria. Will check d-dimer. -- ddimer elevated. plan to ct. -- ct chest interpreted by radiology: Negative --Patient reassessed and is remained stable. Feels much better after IV fluid and eating. Plan for repeat ECG and delta troponin. 16:19 --repeat ECG reviewed and interpreted by me: Normal sinus rhythm 77 bpm, still with persistent ST elevation in V1 and V2 that is unchanged from prior. 16:42 --repeat troponin at 1600 less than 0.02 and unchanged from prior. Patient reassessed and is remained stable. She is able to ambulate around the department without any difficulty. Plan at this time is to have her follow-up with her primary care physician. I have encouraged her to call her PCP tomorrow to arrange timely follow-up later this week at which point consideration can be made for additional diagnostic testing. Disposition decision was made weighing the risks and benefits of hospitalization versus outpatient treatment, the risk for further decompensation, and the patient's wishes. The patient was stable and requested discharge. Prior to discharge, my usual and customary return precautions were reviewed with the patient - this included follow-up instructions and reason to return to the emergency department if condition worsens, does not improve as expected, or other new concerns arise. HPI General Mode of arrival: ambulatory . Date/Time Provider Initiated Documentation: 11/01/18 11:48 . Limitations to Documentation: no limitations . Information obtained by: patient . HPI Narrative: 63-year-old female presents with chief complaint of dizziness. Patient was here having a routine outpatient mammogram and suddenly developed lightheadedness. She felt like she was going to pass out. She had associated diaphoresis and nausea and SOB. Symptoms were severe. Symptoms lasted a few minutes. Resting and drinking some water seem to help. She denies associated chest pain. Of note patient had similar less severe symptoms while driving about 3 days ago. Patient denies associated chest pain with that episode as well. No associated leg swelling or calf pain. Related Data Home Medications Medication Instructions Recorded Confirmed cholecalciferol (vitamin D3) 1,000 unit PO DAILY 09/12/13 11/02/18 lidocaine [Lidoderm] 1 ea TOPICAL DAILY PRN #30 patch 03/09/17 11/02/18 folic acid 1 mg PO DAILY tab-cap 03/19/17 11/02/18 fluticasone propionate 50 2 spray HERSON BID 06/28/18 11/02/18 mcg/actuation nasal spray,suspension brimonidine 1 drp OPHTHALMIC (EYE) BID 07/30/18 11/02/18 clotrimazole 1 applic TOPICAL BID PRN 07/30/18 11/02/18 acetaminophen 1,000 mg PO Q8H PRN #90 tab 08/07/18 11/02/18 Previous Rx's Medication Instructions Recorded acetaminophen 1,000 mg PO Q8H PRN #90 tab 08/07/18 Allergies Allergy/AdvReac Type Severity Reaction Status Date / Time hydroxychloroquine Allergy Intermediate Hives, Verified 11/02/18 14:05 General Stated Complaint: Dizzy/Sync ELIZA: 2 Review of Systems Review of Systems All systems reviewed & are unremarkable except as noted in HPI and below PFSH Medical History Alcohol intake above recommended sensible limits (Chronic) Chronic ethmoidal sinusitis (Chronic 01/18/18) Chronic sphenoidal sinusitis (Chronic 01/18/18) Joint pain (Chronic 10/22/05) Stress due to illness of family member (Resolved 07/13/17) Vitamin D deficiency (Chronic 06/18/08) Smoker (Chronic) Shingles (Resolved 03/03/16) Insomnia (Chronic) Glaucoma (Chronic 07/16/15) Discoid lupus erythematosus (Chronic 06/18/08) Cervical pain (neck) (Chronic 07/16/15) Benign hypertension (Chronic 08/17/12) Allergy (Chronic 01/08/15) Benign neoplasm of ovary (Resolved) Breast lump (Resolved) History of tobacco use (Resolved) Menopausal syndrome (Resolved) Primary osteoarthritis of left hip (Resolved 12/02/17) Shoulder pain (Resolved) Surgical History History of total left hip replacement (Chronic) Hx of ovarian cystectomy (Acute) History of section (Chronic) section (Resolved) H/O section (Resolved) H/O ovarian cystectomy (Resolved) History of hysterectomy for benign disease (Resolved) Family History Mother Diabetes Essential hypertension Stroke Father Heart disease Brother Alcohol abuse Maternal Grandfather No problems noted. Paternal Grandfather No problems noted. Maternal Grandmother Cervical cancer Paternal Grandmother Dementia Son No problems noted. Son No problems noted. Daughter Asthma [facility] (Langerhan's cell histiocytosis) Daughter Substance abuse Alcohol abuse Social History Smoking/Tobacco Use Status: Current every day Tobacco Type: cigarettes and e- cigarettes Tobacco: How many years used: 45 Quit status: has quit before Alcohol Intake: current Alcohol Intake frequency: 3 or more drinks per day Alcohol type: wine Details: 7 glasses of red wine/week Drug use: Never Substance use type: does not use, former substance user and marijuana Household members: spouse Communication Needs: Corrective Lenses Do you need help understanding health information?: Never current occupation: EDUCATOR Pets and animals: Yes Pets and animals: cat(s) and dog(s) Sexually active: No Do you think of yourself as: straight/heterosexual Current gender identity: female What is your relationship status?: How often do you talk on the phone with friends or family?: three or more times per week How often do you get together with friends or relatives?: twice per week How often do you attend confucianism or cheondoism services?: decline to answer Do you belong to any clubs or organized social groups?: no Panel score (0-1 are the most socially isolated patients): 2 What type of physical activity do you participate in: none and other Duration: 45-60 minutes/day Frequency: 1-2 times per week Terri/Scientology: None Special terri needs: No Seatbelt use: always Drive 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 Do you feel safe at home: Yes Do you feel safe in your relationship?: Yes Exam Const General: cooperative and no acute distress HENWV Head: normocephalic and atraumatic Mouth: moist mucous membranes Eyes Conjunctivae: normal conjunctivae Sclera: normal sclerae EOM: EOM intact bilaterally Neck Neck: trachea midline, supple and no JVD Resp Auscultation: clear to auscultation bilaterally, no rales, no rhonchi and no wheezes Cardio Jugular venous pressure: no JVD Rate: regular rate and not tachycardic Rhythm: regular rhythm GI Palpation: soft, not firm, no guarding, no masses, not rigid and nontender Skin General skin exam: no rashes or lesions noted Neuro General: alert, awake, oriented x3 and tone normal Extrem General: no calf tenderness and no edema Psych Appearance: grossly normal Mental Status: mental status grossly normal Speech and Movement: speech and movement normal Course Vital Signs Respiratory Rate 15 11/01/18 11:37 Pulse Oximetry 98 11/01/18 11:37 Temperature 35.9 C L 11/01/18 11:54 Temperature Source Skin 11/01/18 11:54 Pulse 67 11/01/18 12:01 Pulse 66 11/01/18 12:01 Respiratory Rate 11 L 11/01/18 12:06 Respiratory Effort Non-Labored 11/01/18 12:06 Respiratory Depth Normal 11/01/18 12:06 Respiratory Pattern Normal 11/01/18 12:06 Blood Pressure 124/57 L 11/01/18 12:01 Blood Pressure Mean 74 11/01/18 12:01 Pulse Oximetry 98 11/01/18 12:01 Oxygen Delivery Method Room Air 11/01/18 11:54 Oxygen Flow Rate 0 11/01/18 11:54 Pain Level 0 11/01/18 11:54
[2018-11-01 12:23] LABS: Abs Immature Grans 0.01 k/cumm (0.0-0.09); Absolute Basophil Count 0.02 k/cumm (0.0-0.2); Absolute Eosinophil Count 0.04 k/cumm (0.0-0.7); Absolute Lymphocyte Count 1.45 k/cumm (1.2-3.4); Absolute Monocyte Count 0.47 k/cumm (0.11-0.7); Basophils % 0.4; Eosinophils % 0.9; HCT 37.8 % (36.0-46.0); HGB 12.5 g/dL (12.0-15.5); Immature Grans % 0.2; Lymphocytes % 31.6; Mean Corp. HGB Concentration 33.1 g/dL (32.0-36.0); Mean Corpuscular Hemoglobin 30.5 pg (27.0-33.0); Mean Corpuscular Volume 92.2 fL (80-95); Mean Platelet Volume 10.1 fL (8.0-11.0); Monocytes % 10.2; Neutrophils % 56.7; Platelet Count 341 x1000/uL (130-400); RBC Distribution Width 12.8 % (11.7-14.6); White Blood Cell Count 4.59 k/cumm (4.4-10.8)
[2018-11-01 12:34] LABS: ALT 46 U/L (12-78); AST 28 U/L (15-37); Albumin 3.7 g/dL (3.4-5.0); Alkaline Phosphatase 110 U/L (46-116); Anion Gap 11.5 mmol/L (3-11); BUN 15 mg/dL (7-18); Bilirubin, Total 0.3 mg/dL (0.2-1.0); CO2 25.5 mmol/L (21.0-32.0); CREATININE 0.95 mg/dL (0.55-1.02); Calcium 9.8 mg/dL (8.5-10.1); Chloride 102 mmol/L (98-107); Estimated GFR 59.61 (mL/min/1.73m2); Glucose 143 mg/dL (70-100); Magnesium 2.1 mg/dL (1.8-2.4); Sodium 139 mmol/L (136-145); Total Protein 7.3 g/dL (6.4-8.2)
[2018-11-01 12:48] LABS: Troponin I < 0.02 ng/mL (0.00-0.06)
[2018-11-01 13:22] LABS: D-Dimer 1499 ng/mlFEU (<500)
[2018-11-01] MEDS: Lactated Ringers 500 ML IV (13:30)
--- NOTE | 2018-11-01 13:30 | DI.CT_ITS ---
SYMPTOMS/DIAGNOSIS: RECENT LONG DISTANCE TRAVEL, PRESYNCOPE, D-DIMER ELEVATED CT ANGIOGRAPHY OF THE CHEST: CT angiography was performed with multi slice acquisition and multi planar and 3D reconstruction. Routine examination was performed. There is no evidence of a pulmonary embolus. The thoracic aorta is intact. No evidence of dissection or aneurysm. The heart size is within normal limits. No significant pericardial effusion is seen. No evidence of right ventricular function is identified. Coronary artery calcifications are present. No significant thoracic adenopathy, pleural effusion or pneumothorax is identified. No focal consolidating infiltrates are seen in the lungs. The tracheobronchial tree is unremarkable. Degenerative changes are seen in the spine. IMPRESSION: No evidence of a pulmonary embolus, thoracic aortic dissection or aneurysm. The findings were discussed with the Emergency Department on the date of the examination.
[2018-11-01] MEDS: Omnipaque 350 MG/ML 100 ML BTL IJ (14:32)
[2018-11-01 16:32] LABS: Troponin I < 0.02 ng/mL (0.00-0.06)
--- NOTE | 2018-11-01 17:00 | NUR.NOTE ---
Nursing Note: 1645 walked around er and in hallway to lab without difficulty.
== END 2018-11-01 16:54 | disposition home or self-care (01) ==
PROVIDERS: Emergency Provider Student in an Organized Health Care Education/Training Program; PCP Family Medicine
DX: R55 Syncope and collapse (principal); R11.0 Nausea
CPT/HCPCS: 36415; 71275; 80053; 93005; 96360; 96361; 99285; 83735; 84484; 85025; 85379; 93010; J3490

== ENCOUNTER 2018-11-04 07:09 | Outpatient (CLI) | payer BC, SELFPAY ==
[2018-11-04 08:16] LABS: Hemoglobin A1C 5.3 % (4.5-6.2)
[2018-11-04 09:05] LABS: TSH (W/Ref FT4) 3.47 uIU/mL (0.358-3.74)
== END 2018-11-04 07:29 ==
PROVIDERS: PCP Family Medicine; Visit Provider Family Medicine
DX: R55 Syncope and collapse (principal); R63.1 Polydipsia
CPT/HCPCS: 36415; 83036; 84443

== ENCOUNTER 2019-01-31 09:44 | Outpatient (CLI) | payer BC, SELFPAY ==
--- NOTE | 2019-01-31 09:31 | DI.RAD_ITS ---
SYMPTOM/DIAGNOSIS; PAIN AFTER LT GREG LEFT HIP 01/31 Two views were obtained and show total left hip joint replacement in position. The components appear well seated. Mild degenerative changes of the SI joints and right hip noted.
== END 2019-01-31 10:04 ==
PROVIDERS: PCP Family Medicine; Visit Provider Student in an Organized Health Care Education/Training Program
DX: M25.552 Pain in left hip (principal); Z96.642 Presence of left artificial hip joint; M53.3 Sacrococcygeal disorders, not elsewhere classified; M16.11 Unilateral primary osteoarthritis, right hip
CPT/HCPCS: 73502

== ENCOUNTER 2019-02-01 11:18 | Outpatient (CLI) | payer BC, SELFPAY ==
[2019-02-01 12:38] LABS: ESR 21 mm/hr (0-30)
[2019-02-01 13:01] LABS: C-Reactive Protein 0.29 mg/dL (0.0-0.3)
== END 2019-02-01 11:38 ==
PROVIDERS: PCP Family Medicine; Visit Provider Student in an Organized Health Care Education/Training Program
DX: M25.552 Pain in left hip (principal); T84.84XA Pain due to internal orthopedic prosthetic devices, implants and grafts, initial encounter; Z96.642 Presence of left artificial hip joint
CPT/HCPCS: 36415; 85652; 86140

== ENCOUNTER 2019-06-15 01:30 | Outpatient (CLI) | payer BC, SELFPAY ==
--- NOTE | 2019-06-15 13:20 | DI.CTLCSR_ITS ---
EXAM: CT CHEST LUNG CANCER SCREEN CLINICAL HISTORY: SCREENING FOR LUNG CANCER, F17.200 NICOTINE DEPENDENCE, FORMER SMOKER. TECHNIQUE: Imaging protocol: Axial computed tomography images were obtained and coronal and sagittal reformatted images were created and reviewed. COMPARISON: No exams were available for comparison FINDINGS: Tracheobronchial tree: Patent where visualized. Mediastinum and Zeina: No dominant adenopathy or fluid collection. Pulmonary parenchyma: Mild emphysematous changes are seen in the lungs. There are no pulmonary nodule s. No focal consolidating infiltrates are present. Pleura: No effusion or pneumothorax. Heart: The heart is not dilated. Mild coronary artery calcification is present. No pericardial effusi on is seen. Aorta: Atherosclerosis. No dilatation Upper abdomen: Unremarkable. Lymph nodes: Within normal limits. Bones:Degenerative changes. IMPRESSION: 1. No pulmonary nodules. 2. Pulmonary emphysema. 3. Lung RADS Cat 1 - Negative: No nodules and definitely benign nodules DATA REPOSITORY: All CT scans at this facility are submitted to the National Radiology Data Registry (NRDR) Dose Index Registry (DIR) with the [employer] (ACR). RADIATION OPTIMIZATION: All CT scans at this facility use at least one of these dose optimization te chniques: automated exposure control; mA and/or kV adjustment per patient size (includes targeted exa ms where dose is matched to clinical indication); or iterative reconstruction.
== END 2019-06-15 01:50 ==
PROVIDERS: PCP Family Medicine; Visit Provider Family Medicine
DX: Z12.2 Encounter for screening for malignant neoplasm of respiratory organs (principal); F17.200 Nicotine dependence, unspecified, uncomplicated; J43.8 Other emphysema
CPT/HCPCS: G0297

== ENCOUNTER 2020-03-22 02:39 | Outpatient (CLI) | payer BC, SELFPAY ==
[2020-03-22 11:56] LABS: ALT 45 U/L (14-59); AST 26 U/L (15-37); Albumin 3.7 g/dL (3.4-5.0); Alkaline Phosphatase 116 U/L (46-116); BUN 14 mg/dL (7-18); Bilirubin, Total 0.5 mg/dL (0.2-1.0); CREATININE 0.95 mg/dL (0.55-1.02); Calcium 9.7 mg/dL (8.5-10.1); Chloride 101 mmol/L (98-107); Estimated GFR 59.41 (mL/min/1.73m2); Glucose 117 mg/dL (74-106); Potassium 4.2 mmol/L (3.5-5.1); Sodium 135 mmol/L (136-145); Total Protein 6.8 g/dL (6.4-8.2)
== END 2020-03-22 02:59 ==
PROVIDERS: PCP Family Medicine; Visit Provider Family Medicine
DX: I10 Essential (primary) hypertension (principal)
CPT/HCPCS: 36415; 80053

== ENCOUNTER 2020-10-18 01:55 | Outpatient (CLI) | payer BC, SELFPAY ==
--- NOTE | 2020-10-18 07:45 | DI.CTLCSR_ITS ---
Exam(s) CT CHEST LUNG CANCER SCREEN EXAM: CT CHEST LUNG CANCER SCREEN CLINICAL HISTORY: Screening for lung cancer,CURRENT SMOKER, F17.210. TECHNIQUE: Imaging Protocol: Low Dose Technique CONTRAST MATERIAL: None COMPARISON: CT CT CHEST LUNG CANCER SCREEN from 06/15/2019 FINDINGS: CHEST: LUNGS: There are unchanged mild increased markings in the most superior aspect of the superior segmen t of the right lower lobe.. There are no new pulmonary nodules. No pleural effusions. MEDIASTINUM: There is no obvious hilar nor mediastinal adenopathy. CARDIAC: Heart size is normal. There is no pericardial effusion.Caliber of the thoracic aorta is wit hin normal limits. OTHER: OSSEOUS: No significant osseous lesions.. IMPRESSION: 1. Stable benign-appearing increased markings in the superior segment right lower lobe. No pleural e ffusions. 2. No new focal pulmonary findings. No intrathoracic adenopathy. 3. Lung RADS Cat 1 - Negative: No nodules and definitely benign nodules Lung-RADS 1.0 CATEGORIES: Category 0 - Prior chest CT exam(s) being located for comparison. Category 1 - Annual screening in 12 months. No nodules or definitely benign nodules. Category 2 - Annual screening in 12 months. Benign appearance. Nodules with low likelihood of becomin g active cancer. Category 3 - 6-month follow-up. Probably benign. Short-term follow-up suggested. Nodules with low lik elihood of becoming active cancer. Category 4A - 3-month follow-up and CT/PET if >8 mm in size. Suspicious finding. Findings which requi re additional testing. Category 4B - Findings which require additional testing and tissue sampling. Modifier S- Potentially clinically significant findings (non lung cancer) RADIATION DOSE DELIVERED: 84.97mGy.cm Total DLP CTDIvol DATA REPOSITORY: All CT scans at this facility are submitted to the National Radiology Data Registry (NRDR) Dose Index Registry (DIR) with the [employer] (ACR). RADIATION OPTIMIZATION: All CT scans at this facility use at least one of these dose optimization te chniques: automated exposure control; mA and/or kV adjustment per patient size (includes targeted exa ms where dose is matched to clinical indication); or iterative reconstruction.
--- NOTE | 2020-10-18 07:45 | DI.MAMMO_ITS ---
Exam(s) MAMMO SCREENING EXAM: MAMMO SCREENING CLINICAL HISTORY: screening,Z12.39. TECHNIQUE: Bilateral full field digital CC and MLO mammographic images were obtained with 3D tomosyn thesis and utilizing computer aided detection (CAD). COMPARISON: Prior mammograms dating back to 2012, the most recent being October 2018. FINDINGS: There are no CAD designations There are no significant radiograph findings in the immediate vicinity of the biopsy marker clip in t he upper-outer quadrant of the right breast. There are no new spiculated masses nor malignant appearing microcalcification groups. There is no significant architectural distortion nor skin thickening-retraction. IMPRESSION: No radiographic evidence of malignancy. BI-RADS Category 1 - Negative Breast Density - Category B - Scattered areas of fibroglandular density Breast density Category C or D implies that the patient has dense breast tissue. Dense breast tissue can make it harder to find cancer on a mammogram. Dense breast tissue is also associated with an incr eased risk of breast cancer. This information about the result of the mammogram report was provided to the patient to raise their awareness. Use this report when you speak with the patient about their risks for breast cancer, which includes their family history. At that time, you may recommend additional screening tests (Ultrasoun d or MRI) as these tests may add significant information. A negative radiographic report should not delay biopsy if a dominant or clinically suspicious mass is present. Up to ten percent of cancers are not identified on mammography. A negative report may reinforce clinical impression. Adenosis and dense breasts may obscure an underlying neoplasm. False positive reports average 6 to 10%. Patient will receive a letter notifying them of these results.
== END 2020-10-18 02:15 ==
PROVIDERS: PCP Family Medicine; Visit Provider Family Medicine
DX: Z12.31 Encounter for screening mammogram for malignant neoplasm of breast (principal); Z12.2 Encounter for screening for malignant neoplasm of respiratory organs; F17.210 Nicotine dependence, cigarettes, uncomplicated; J98.4 Other disorders of lung
CPT/HCPCS: 71271; 77063; 77067

== ENCOUNTER 2021-01-10 02:42 | Outpatient (CLI) | payer BC, SELFPAY ==
[2021-01-10 11:50] LABS: Abs Immature Grans 0.01 10^3/uL (0.0-0.06); Absolute Basophil Count 0.04 10^3/uL (0.0-0.2); Absolute Eosinophil Count 0.07 10^3/uL (0.0-0.7); Absolute Lymphocyte Count 1.36 10^3/uL (1.2-3.4); Absolute Neutrophil Count 1.97 10^3/uL (1.2-6.7); Basophils % 1.1; Eosinophils % 1.9; HCT 38.9 % (36.0-46.0); HGB 12.7 g/dL (11.2-15.7); Immature Grans % 0.3; Lymphocytes % 36.3; MCH 30.8 pg (27.0-33.0); MCHC 32.6 % (32.0-36.0); MCV 94.2 fL (80-95); MPV 10.7 fL (8.0-11.0); Neutrophils % 52.4; Nucleated RBC 0 %; Platelet Count 305 10^3/uL (130-400); RBC 4.13 10^6/uL (3.93-5.22); RDW 12.6 % (11.7-14.6); RDW-SD 43.8 fL; WBC 3.75 10^3/uL (4.4-10.8)
[2021-01-10 12:17] LABS: C-Reactive Protein 0.32 mg/dL (0.0-0.3); CREATININE 0.9 mg/dL (0.55-1.02); TSH 1.83 uIU/mL (0.36-3.74)
[2021-01-10 12:55] LABS: Vitamin B12 265 pg/mL (193-986)
== END 2021-01-10 02:43 | disposition home or self-care (01) ==
LOC: LOS 02:42
PROVIDERS: PCP Family Medicine; Visit Provider Emergency Medicine
DX: E03.9 Hypothyroidism, unspecified (principal); R51.9 Headache, unspecified
CPT/HCPCS: 36415; 82565; 82607; 84443; 85025; 86140

== ENCOUNTER 2021-01-11 03:53 | Outpatient (CLI) | payer BC, SELFPAY ==
--- NOTE | 2021-01-11 06:30 | DI.CT_ITS ---
Exam(s) CT BRAIN CTA EXAM: CT BRAIN CTA CLINICAL HISTORY: frontal head pain,R51.9. TECHNIQUE: Imaging Protocol: Axial CT angiography was performed with multi-slice acquisition and mu lti-planar and/or 3D reconstructions. CONTRAST MATERIAL: Intravenous: Omnipaque 350 Contrast volume:85 mL COMPARISON: CT SINUS CT WITHOUT CONTRAST from 11/27/[address] CHEST PE CTA from 11/01/2018 FINDINGS: CT Head with and w/O: Ventricles and Extra axial spaces: Normal in size and morphology for the patient's age. Hemorrhage: None. Cerebral parenchyma: Normal. Midline shift: None. Brainstem/Cerebellum: Normal. Calvarium: Normal. Visualized Paranasal sinuses/Mastoids: There is opacification of a few left ethmoid air cells. The r emaining visualized paranasal sinuses and mastoid air cells are clear. Soft Tissues: Unremarkable. Enhancement: No abnormal intracranial enhancement. CTA Brain W: Internal Carotid Arteries: Petrous: Normal. Cavernous: Atherosclerosis. No occlusion or significant stenosis. Cerebral: Normal. Anterior Cerebral Arteries: Right: No aneurysm, occlusion or significant stenosis. Left: No aneurysm, occlusion or significant stenosis. Middle Cerebral Arteries: Right: No aneurysm, occlusion or significant stenosis. Left: No aneurysm, occlusion or significant stenosis. Posterior cerebral Arteries: Right: No aneurysm, occlusion or significant stenosis. Left: No aneurysm, occlusion or significant stenosis. Vertebral Arteries: Right: No aneurysm, occlusion or significant stenosis. Left: No aneurysm, occlusion or significant stenosis. Basilar Artery: No aneurysm, occlusion or significant stenosis. IMPRESSION: 1. Atherosclerosis of the internal carotid arteries but no evidence of aneurysm, occlusion or signifi cant stenosis. 2. No acute intracranial process. 3. Ethmoid sinusitis. RADIATION DOSE DELIVERED: 1,697.12mGy.cm Total DLP DATA REPOSITORY: All CT scans at this facility are submitted to the National Radiology Data Registry (NRDR) Dose Index Registry (DIR) with the [employer] (ACR). RADIATION OPTIMIZATION: All CT scans at this facility use at least one of these dose optimization te chniques: automated exposure control; mA and/or kV adjustment per patient size (includes targeted exa ms where dose is matched to clinical indication); or iterative reconstruction.
[2021-01-11] MEDS: Omnipaque 350 MG/ML 100 ML BTL IJ (09:29)
== END 2021-01-11 04:13 ==
PROVIDERS: PCP Family Medicine; Visit Provider Emergency Medicine
DX: I65.29 Occlusion and stenosis of unspecified carotid artery (principal); J32.2 Chronic ethmoidal sinusitis
CPT/HCPCS: 70496; J3490

== ENCOUNTER 2021-02-25 03:31 | Outpatient (CLI) | payer BC, SELFPAY ==
[2021-02-25 13:23] LABS: Hemoglobin A1C 5.4 % (<5.7)
[2021-02-26 11:05] LABS: Lyme Ab w Rflx to Lyme Confirm Negative (Negative)
[2021-02-26 13:45] LABS: Albumin 61.5 % (55.8-66.1); Total Protein 6.6 g/dL (6.3-8.2)
[2021-02-28 00:52] LABS: Anaplasma phagocytophilum Negative (Negative); B. miyamotoi PCR Negative (Negative); Babesia divergens/MO-1 Negative (Negative); Babesia duncani Negative (Negative); Babesia microti Negative (Negative); Ehrlichia chaffeensis Negative (Negative); Ehrlichia ewingii/canis Negative (Negative); Ehrlichia muris eauclairensis Negative (Negative)
== END 2021-02-25 03:32 | disposition home or self-care (01) ==
LOC: LOS 03:32
PROVIDERS: PCP Family Medicine; Visit Provider Family Medicine
DX: E11.9 Type 2 diabetes mellitus without complications (principal); G62.89 Other specified polyneuropathies
CPT/HCPCS: 36415; 87798; 83036; 84165; 86618

== ENCOUNTER → 2021-05-02 13:31 | Outpatient (BNVA) | payer MEDICARE, BC, SELFPAY | PROVIDERS: PCP Family Medicine; Referring Provider Family Medicine; Visit Provider Psychiatry & Neurology Neurology | DX: G62.9 Polyneuropathy, unspecified (principal); G56.03 Carpal tunnel syndrome, bilateral upper limbs; I10 Essential (primary) hypertension | CPT/HCPCS: 95912; 99214 ==

== ENCOUNTER 2021-05-08 01:24 | Outpatient (CLI) | payer MEDICARE, BC, SELFPAY ==
[2021-05-08 12:01] LABS: ESR 21 mm/hr (0-30)
[2021-05-08 22:57] LABS: Thyroperoxidase Antibody 1051 U/mL (<=60)
[2021-05-09 14:03] LABS: ANA Interpretation Positive (Negative); ANA Titer Pattern 1:160 Homogeneous
== END 2021-05-08 01:25 | disposition home or self-care (01) ==
LOC: LBO 01:25
PROVIDERS: PCP Family Medicine; Visit Provider Psychiatry & Neurology Neurology
DX: G62.89 Other specified polyneuropathies (principal)
CPT/HCPCS: 36415; 85652; 86038; 86376

== ENCOUNTER 2021-05-29 02:23 | Outpatient (RCR) | payer MEDICARE, BC, SELFPAY ==
[2021-05-27 09:40] VITALS: BP 130/64; PULSE 61; RESP 17; TEMP 36.7; O2SAT 98
[2021-05-27] MEDS: IMMUNE GLOBULIN 10 GM/100 ML BTL IVPB (09:47)
[2021-05-27] MEDS: Normal Saline Flush 10 ML SYR IVP (09:48)
[2021-05-27 09:52] LABS: CREATININE 0.9 mg/dL (0.55-1.02)
[2021-05-27 09:55] VITALS: BP 128/60; PULSE 66; RESP 17; TEMP 36.4; O2SAT 98
[2021-05-27 10:15] VITALS: BP 120/60; PULSE 61; RESP 16; TEMP 36.5; O2SAT 98
[2021-05-27 10:45] VITALS: BP 118/64; PULSE 61; RESP 16; TEMP 36.6; O2SAT 98
[2021-05-27] MEDS: IMMUNE GLOBULIN 40 GM/400 ML BTL IVPB (10:49)
[2021-05-27 11:15] VITALS: BP 122/66; PULSE 60; RESP 16; TEMP 36.7; O2SAT 98
[2021-05-27 11:45] VITALS: BP 120/72; PULSE 59; RESP 16; TEMP 36.4; O2SAT 99
[2021-05-28 09:35] VITALS: BP 120/62; PULSE 81; RESP 16; TEMP 36.7; O2SAT 97
[2021-05-28] MEDS: IMMUNE GLOBULIN 10 GM/100 ML BTL IVPB (09:40)
[2021-05-28] MEDS: Normal Saline Flush 10 ML SYR IVP (09:44)
[2021-05-28 10:00] VITALS: BP 120/58; PULSE 76; RESP 16; TEMP 37.2; O2SAT 97
[2021-05-28 10:15] VITALS: BP 120/56; PULSE 72; RESP 16; TEMP 37; O2SAT 98
[2021-05-28] MEDS: IMMUNE GLOBULIN 40 GM/400 ML BTL IVPB (10:31)
[2021-05-28 10:45] VITALS: BP 114/64; PULSE 71; RESP 17; TEMP 36.6; O2SAT 97
[2021-05-28 11:10] VITALS: BP 118/58; PULSE 69; RESP 17; TEMP 36.4; O2SAT 97
[2021-05-28 11:46] VITALS: BP 116/62; PULSE 72; RESP 17; TEMP 36.8; O2SAT 98
[2021-05-29 09:30] VITALS: BP 120/60; PULSE 62; RESP 17; TEMP 36.7; O2SAT 98
[2021-05-29] MEDS: IMMUNE GLOBULIN 10 GM/100 ML BTL IVPB (09:34)
[2021-05-29] MEDS: Normal Saline Flush 10 ML SYR IVP (09:39)
[2021-05-29 09:47] LABS: CREATININE 0.9 mg/dL (0.55-1.02)
[2021-05-29 09:50] VITALS: BP 124/66; PULSE 65; RESP 16; TEMP 37.2; O2SAT 98
[2021-05-29 10:05] VITALS: BP 138/68; PULSE 62; RESP 17; TEMP 37; O2SAT 98
[2021-05-29] MEDS: IMMUNE GLOBULIN 40 GM/400 ML BTL IVPB (10:32)
[2021-05-29 10:40] VITALS: BP 138/64; PULSE 63; RESP 17; TEMP 36.7; O2SAT 98
[2021-05-29 11:10] VITALS: BP 160/72; PULSE 60; RESP 16; TEMP 36.8; O2SAT 98
== END 2021-06-24 23:59 | disposition home or self-care (01) ==
LOC: INF 02:23
PROVIDERS: PCP Family Medicine; Visit Provider Psychiatry & Neurology Neurology
DX: G61.81 Chronic inflammatory demyelinating polyneuritis (principal)
CPT/HCPCS: 36415; 96365; 96366; 82565; J1459

== ENCOUNTER → 2021-06-03 09:44 | Outpatient (BNVA) | payer MEDICARE, BC, SELFPAY | PROVIDERS: PCP Family Medicine; Referring Provider Family Medicine; Visit Provider Psychiatry & Neurology Neurology | DX: G62.9 Polyneuropathy, unspecified (principal); G56.03 Carpal tunnel syndrome, bilateral upper limbs; I10 Essential (primary) hypertension | CPT/HCPCS: 99213 ==

== ENCOUNTER 2021-07-10 02:10 | Outpatient (RCR) | payer MEDICARE, BC, SELFPAY ==
[2021-06-25 00:02] VITALS: BP 160/72; PULSE 60; RESP 16; TEMP 36.8
[2021-07-10 09:35] VITALS: BP 127/70; PULSE 84; RESP 17; TEMP 36.4; O2SAT 98
[2021-07-10] MEDS: IMMUNE GLOBULIN 5 GM/50 ML BTL IV (09:42)
[2021-07-10] MEDS: Normal Saline Flush 10 ML SYR IVP (09:45)
[2021-07-10 09:50] LABS: CREATININE 0.9 mg/dL (0.55-1.02)
[2021-07-10 10:01] VITALS: BP 107/68; PULSE 73; RESP 16; TEMP 36.6; O2SAT 99
[2021-07-10] MEDS: IMMUNE GLOBULIN 10 GM/100 ML BTL IVPB (10:15)
[2021-07-10 10:16] VITALS: BP 113/72; PULSE 72; RESP 16; TEMP 36.6; O2SAT 98
[2021-07-10 10:34] VITALS: BP 118/71; PULSE 65; RESP 17; TEMP 36.5; O2SAT 98
[2021-07-10] MEDS: IMMUNE GLOBULIN 20 GM/200 ML BTL IV (10:55)
[2021-07-10 11:00] VITALS: BP 126/76; PULSE 65; RESP 17; TEMP 36.5; O2SAT 99
[2021-07-10 11:35] VITALS: BP 132/77; PULSE 66; RESP 17; TEMP 36.4; O2SAT 100
[2021-07-10] MEDS: IMMUNE GLOBULIN 40 GM/400 ML BTL IVPB (11:36)
== END 2021-07-22 23:59 | disposition home or self-care (01) ==
LOC: INF 02:10
PROVIDERS: PCP Family Medicine; Visit Provider Psychiatry & Neurology Neurology
DX: G61.82 Multifocal motor neuropathy (principal)
CPT/HCPCS: 36415; 96365; 96366; 82565; J1459

== ENCOUNTER 2021-08-14 01:26 | Outpatient (RCR) | payer MEDICARE, BC, SELFPAY ==
[2021-07-23 00:09] VITALS: BP 132/77; PULSE 66; RESP 17; TEMP 36.4
[2021-08-14] MEDS: Normal Saline Flush 10 ML SYR IVP (09:52)
[2021-08-14] MEDS: IMMUNE GLOBULIN 5 GM/50 ML BTL IV (09:52)
[2021-08-14 09:55] VITALS: BP 118/74; PULSE 75; RESP 16; TEMP 36.4; O2SAT 97
[2021-08-14 10:09] LABS: CREATININE 0.8 mg/dL (0.55-1.02)
[2021-08-14 10:17] VITALS: BP 117/70; PULSE 71; RESP 16; TEMP 36.4; O2SAT 99
[2021-08-14] MEDS: IMMUNE GLOBULIN 10 GM/100 ML BTL IVPB (10:30)
[2021-08-14 10:33] VITALS: BP 122/74; PULSE 67; RESP 16; TEMP 36.5; O2SAT 98
[2021-08-14 11:04] VITALS: BP 129/76; PULSE 70; RESP 16; TEMP 36.4; O2SAT 98
[2021-08-14] MEDS: IMMUNE GLOBULIN 20 GM/200 ML BTL IV (11:07)
[2021-08-14 11:36] VITALS: BP 132/75; PULSE 63; RESP 16; TEMP 36.3; O2SAT 98
[2021-08-14] MEDS: IMMUNE GLOBULIN 40 GM/400 ML BTL IVPB (12:05)
== END 2021-08-22 23:59 | disposition home or self-care (01) ==
LOC: INF 01:26
PROVIDERS: PCP Family Medicine; Visit Provider Psychiatry & Neurology Neurology
DX: G61.81 Chronic inflammatory demyelinating polyneuritis (principal)
CPT/HCPCS: 36415; 96365; 96366; 99195; 82565; J1459

== ENCOUNTER → 2021-08-19 09:35 | Outpatient (BNVA) | payer MEDICARE, BC, SELFPAY | PROVIDERS: PCP Family Medicine; Visit Provider Psychiatry & Neurology Neurology | DX: G62.9 Polyneuropathy, unspecified (principal); E53.8 Deficiency of other specified B group vitamins; F10.20 Alcohol dependence, uncomplicated; G56.03 Carpal tunnel syndrome, bilateral upper limbs; L98.9 Disorder of the skin and subcutaneous tissue, unspecified | CPT/HCPCS: 99213 ==

== ENCOUNTER 2022-04-14 16:06 | Outpatient (REF) | payer MEDICARE, BC, SELFPAY | END 2022-04-14 16:07 | disposition home or self-care (01) | LOC: LBN 16:06 | PROVIDERS: PCP Family Medicine; Visit Provider Physician Assistant | DX: N39.0 Urinary tract infection, site not specified (principal) | CPT/HCPCS: 87086 ==

== ENCOUNTER 2022-04-15 03:03 | Outpatient (CLI) | payer MEDICARE, BC, SELFPAY ==
[2022-04-15 12:53] LABS: ALT 47 U/L (14-59); AST 34 U/L (15-37); Albumin 3.7 g/dL (3.4-5.0); Alkaline Phosphatase 120 U/L (46-116); Anion Gap 7.2 mmol/L (3-11); BUN 12 mg/dL (7-18); Bilirubin, Total 0.3 mg/dL (0.2-1.0); CO2 28.8 mmol/L (21.0-32.0); CREATININE 0.9 mg/dL (0.55-1.02); Calcium 10.1 mg/dL (8.5-10.1); Chloride 102 mmol/L (98-107); Estimated GFR 70.95 (mL/min/1.73m2); Glucose 113 mg/dL (74-106); Potassium 4.9 mmol/L (3.5-5.1); Sodium 138 mmol/L (136-145); Total Protein 7.6 g/dL (6.4-8.2)
== END 2022-04-15 03:04 | disposition home or self-care (01) ==
LOC: LOS 03:03
PROVIDERS: PCP Family Medicine; Visit Provider Family Medicine
DX: I10 Essential (primary) hypertension (principal); Z00.00 Encounter for general adult medical examination without abnormal findings
CPT/HCPCS: 36415; 80053

== ENCOUNTER → 2022-08-18 08:40 | Outpatient (BNVA) | payer MEDICARE, BC, SELFPAY | PROVIDERS: PCP Family Medicine; Referring Provider Family Medicine; Visit Provider Student in an Organized Health Care Education/Training Program | DX: M72.0 Palmar fascial fibromatosis [Dupuytren] (principal) | CPT/HCPCS: 99213 ==

== ENCOUNTER 2022-12-05 01:37 | Outpatient (CLI) | payer MEDICARE, BC, SELFPAY ==
[2022-12-05 12:45] LABS: ALT 27 U/L (14-59); AST 20 U/L (15-37); Albumin 3.6 g/dL (3.4-5.0); Alkaline Phosphatase 112 U/L (46-116); Anion Gap 8.4 mmol/L (3-11); BUN 12 mg/dL (7-18); Bilirubin, Total 0.4 mg/dL (0.2-1.0); CO2 26.6 mmol/L (21.0-32.0); CREATININE 0.9 mg/dL (0.55-1.02); Calcium 9.8 mg/dL (8.5-10.1); Chloride 105 mmol/L (98-107); Estimated GFR 70.51 (mL/min/1.73m2); Glucose 96 mg/dL (74-106); Potassium 4.1 mmol/L (3.5-5.1); Sodium 140 mmol/L (136-145); Total Protein 7.3 g/dL (6.4-8.2)
== END 2022-12-05 01:38 | disposition home or self-care (01) ==
LOC: LOS 01:37
PROVIDERS: PCP Family Medicine; Visit Provider Family Medicine
DX: I10 Essential (primary) hypertension (principal)
CPT/HCPCS: 36415; 80053

== ENCOUNTER 2023-01-06 03:16 | Outpatient (CLI) | payer MEDICARE, BC, SELFPAY ==
[2023-01-06 13:17] LABS: TSH (W/Ref FT4) 1.93 uIU/mL (0.36-3.74); Vitamin B12 757 pg/mL (193-986)
== END 2023-01-06 03:17 | disposition home or self-care (01) ==
LOC: LOS 03:16
PROVIDERS: PCP Family Medicine; Visit Provider Family Medicine
DX: E05.90 Thyrotoxicosis, unspecified without thyrotoxic crisis or storm (principal); G62.9 Polyneuropathy, unspecified; Z86.39 Personal history of other endocrine, nutritional and metabolic disease
CPT/HCPCS: 36415; 82607; 84443

== ENCOUNTER → 2023-02-02 01:10 | Outpatient (CLI) | payer MEDICARE, BC, SELFPAY ==
--- NOTE | 2023-02-02 07:45 | DI.MAMMO_ITS ---
Exam(s) MAMMO SCREENING EXAM: MAMMO SCREENING CLINICAL HISTORY: screening,z12.39. TECHNIQUE: Bilateral full field digital CC and MLO mammographic images were obtained with 3D tomosyn thesis and utilizing computer aided detection (CAD). COMPARISON: Prior mammograms were reviewed. FINDINGS: There has been no significant change in the appearance and distribution of the fibroglandular tissue. No new findings in the immediate vicinity of the biopsy marker clip in the right breast. There are no new spiculated masses nor malignant appearing microcalcification groups. There is no significant architectural distortion nor skin thickening-retraction. IMPRESSION: No radiographic evidence of malignancy. BI-RADS Category 1 - Negative Breast Density - Category B - Scattered areas of fibroglandular density Breast density Category C or D implies that the patient has dense breast tissue. Dense breast tissue can make it harder to find cancer on a mammogram. Dense breast tissue is also associated with an incr eased risk of breast cancer. This information about the result of the mammogram report was provided to the patient to raise their awareness. Use this report when you speak with the patient about their risks for breast cancer, which includes their family history. At that time, you may recommend additional screening tests (Ultrasoun d or MRI) as these tests may add significant information. A negative radiographic report should not delay biopsy if a dominant or clinically suspicious mass is present. Up to ten percent of cancers are not identified on mammography. A negative report may reinforce clinical impression. Adenosis and dense breasts may obscure an underlying neoplasm. False positive reports average 6 to 10%. Patient will receive a letter notifying them of these results.
--- NOTE | 2023-02-02 13:15 | DI.CTLCSR_ITS ---
Exam(s) CT CHEST LUNG CANCER SCREEN EXAM: CT CHEST LUNG CANCER SCREEN CLINICAL HISTORY: Screening for lung cancer,current smoker, f17.210. TECHNIQUE: Imaging Protocol: Low Dose Technique CONTRAST MATERIAL: None COMPARISON: CT CT CHEST LUNG CANCER SCREEN from 10/18/2020 FINDINGS: CHEST: LUNGS: Biapical lung scarring is unchanged. Also small calcified granuloma in the sub apical right u pper lobe is also unchanged. Increased markings in the most superior aspect of the superior segment of the right lower lobe are again noted, unchanged. There is a new small 5 millimeter nodule in left lower lobe evident, no obvious other additional new nodules evident. There are no pleural effusions . MEDIASTINUM: There is no obvious hilar nor mediastinal adenopathy. CARDIAC: Heart size is normal. There is no pericardial effusion.Caliber of the thoracic aorta is wit hin normal limits. OTHER: OSSEOUS: There is a significant fracture of L1 vertebral body superior endplate which was not evident on the prior study of September 2020. There is Schmorl's node in vas a luna in the superior endplate of T1 2 which is unchanged. No other significant osseous findings.. IMPRESSION: 1. Compared to the prior CT scan of 10/18/2020 there is a new 5 millimeter noncalcified nodule in the left lower lobe. Increased markings in the superior aspect of the superior segment of the right lower lobe again noted . 2. There is compression fracture of L1 vertebral body with approximately 40 percent height loss. Th is was not evident on the prior CT scan of September 2020. Schmorl's node invagination in superior endplat e of T12 is unchanged. 3. Lung RADS Cat 4A - Suspicious: New findings for which additional diagnostic testing and/or tissue sampling recommended. Recommend repeat CT scan in 6 months. Lung-RADS 1.0 CATEGORIES: Category 0 - Prior chest CT exam(s) being located for comparison. Category 1 - Annual screening in 12 months. No nodules or definitely benign nodules. Category 2 - Annual screening in 12 months. Benign appearance. Nodules with low likelihood of becomin g active cancer. Category 3 - 6-month follow-up. Probably benign. Short-term follow-up suggested. Nodules with low lik elihood of becoming active cancer. Category 4A - 3-month follow-up and CT/PET if >8 mm in size. Suspicious finding. Findings which requi re additional testing. Category 4B - Findings which require additional testing and tissue sampling. Category 4X - Category 3 or 4 nodules with additional features or imaging findings that increases the suspicion of malignancy. Modifier S- Potentially clinically significant findings (non lung cancer) RADIATION DOSE DELIVERED: 81.53mGy.cm Total DLP DATA REPOSITORY: All CT scans at this facility are submitted to the National Radiology Data Registry (NRDR) Dose Index Registry (DIR) with the [employer] (ACR). RADIATION OPTIMIZATION: All CT scans at this facility use at least one of these dose optimization te chniques: automated exposure control; mA and/or kV adjustment per patient size (includes targeted exa ms where dose is matched to clinical indication); or iterative reconstruction.
--- NOTE | 2023-02-02 13:33 | DI.RAD_ITS ---
Exam(s) XR LUMBAR SPINE COMPLETE EXAM: XR LUMBAR SPINE COMPLETE CLINICAL HISTORY: LBP, fell on her tailbone twice,m54.50. TECHNIQUE: 2D digital imaging was performed. Five views. COMPARISON: CT CT CHEST PE CTA from 11/01/[address] CHEST LUNG CANCER SCREEN from 10/18/[address] CHEST LUNG CANCER SCREEN from 02/02/2023 FINDINGS: BONES: No acute fracture or destructive lesion. Stable appearance of mild loss of vertebral body heig ht at T12 with Schmorl's node at superior endplate. Moderate compression fracture of the superior en dplate of L1 which is new since September of 2020. Moderate facet hypertrophy identified. Left hip prosth esis. DISKS: Intervertebral disc spaces are maintained. ALIGNMENT: Lumbar spinal alignment is within normal limits. SOFT TISSUE: Aorta is calcified but normal in diameter. IMPRESSION: Moderate compression fracture of L1 appears old however has occurred since September 2020. DATA REPOSITORY: RADIATION DOSE DELIVERED:
== END ==
PROVIDERS: PCP Family Medicine; Visit Provider Family Medicine
DX: F17.210 Nicotine dependence, cigarettes, uncomplicated; Z12.31 Encounter for screening mammogram for malignant neoplasm of breast; Z12.2 Encounter for screening for malignant neoplasm of respiratory organs; R91.8 Other nonspecific abnormal finding of lung field; S32.010A Wedge compression fracture of first lumbar vertebra, initial encounter for closed fracture; X58.XXXA Exposure to other specified factors, initial encounter
CPT/HCPCS: 71271; 77063; 77067; 72110

== ENCOUNTER → 2023-02-16 12:52 | Outpatient (BNVA) | payer MEDICARE, BC, SELFPAY | PROVIDERS: PCP Family Medicine; Referring Provider Family Medicine; Visit Provider Surgery | DX: R19.5 Other fecal abnormalities (principal); G47.00 Insomnia, unspecified; L93.0 Discoid lupus erythematosus; I10 Essential (primary) hypertension | CPT/HCPCS: 99214; 99242 ==

== ENCOUNTER → 2023-02-19 03:44 | Outpatient (CLI) | payer MEDICARE, BC, SELFPAY ==
--- NOTE | 2023-02-19 08:00 | DI.DEXA_ITS ---
Exam(s) XR DEXA BONE DENSITY W/WO WILLARD EXAM: XR DEXA BONE DENSITY W/WO WILLARD CLINICAL HISTORY: compression fx,SCREENING FOR OSTEOPOROSIS IN POSTMENOPAUSAL WOMAN,Z78.0 TECHNIQUE: Routine DEXA evaluation of the lumbar spine, hip, or forearm. COMPARISON: Prior DEXA scan of 2006 CR XR LUMBAR SPINE COMPLETE from 02/02/2023 FINDINGS: Performed on a [employer] unit. Lateral image: There is compression fracture of L1 superior endplate.. This also seen on plain films of 02/02/2023. Lumbar Spine total T-score: 0.3. Prior 2006 reading was 1.1 Hip total T-score:-0.9. Independent reading at the level of the femoral neck yields T-score of -1.0 Forearm total T-score: -1.0 IMPRESSION: Bone mineral density measures in the normal range. Fracture risk is low. Note: Any spine fracture indicates 5x risk for subsequent spine fracture and 2x risk for subsequent h ip fracture. World Health Organization criteria for BMD interpretation classify patients: Normal...... T- Score at or above -1.0 Osteopenic... T- Score between -1.0 and -2.5 Osteoporosis... T-Score at or below -2.5
== END ==
PROVIDERS: PCP Family Medicine; Visit Provider Family Medicine
DX: M54.50 Low back pain, unspecified (principal); Z78.0 Asymptomatic menopausal state; Z13.820 Encounter for screening for osteoporosis
CPT/HCPCS: 77080

== ENCOUNTER 2023-03-06 08:07 | Day surgery (SDC) | payer MEDICARE, BC, SELFPAY ==
--- NOTE | 2023-03-05 19:58 | PDOC.DSDIS_ITS ---
Date of service: 03/06/23 Time of Service: 09:41 Discharge Plan Disposition Patient Disposition: Home Condition: Good Discharge Details Reason For Visit: crc screening Attending Provider: Rayna Schneider Primary Care Provider: Silvia Nath Home Meds and New Rx's Prescriptions: Continued mecobalamin (vitamin B12) 1,000 mcg tablet,chewable 1,000 mcg PO DAILY dorzolamide-timolol 22.3-6.8 mg/mL drops 1 drp ophthalmic (eye) BID Patient Comments: INSTILL 1 DROP INTO BOTH EYES TWICE A DAY magnesium oxide 500 mg capsule 500 mg PO DAILY albuterol sulfate [Proventil HFA] 90 mcg/actuation HFA aerosol inhaler 2 puff inhalation Q6H PRN (Reason: shortness of breath or wheezing) Qty: 8.5 0RF cholecalciferol (vitamin D3) 1,000 UNIT capsule 1,000 unit PO DAILY folic acid 1 MG tablet 1 mg PO DAILY lisinopril 20 mg tablet 20 mg PO DAILY Qty: 90 3RF fluticasone propionate [Flonase Allergy Relief] 50 mcg/actuation spray,suspension 2 spray HERSON DAILY PRN (Reason: allergy symptoms) Qty: 16 3RF Hold Instructions: due to paxlovid interaction clotrimazole 1 % Cream 1 applic TOPICAL BID PRN acetaminophen 500 mg tablet 1,000 mg PO Q8H PRN (Reason: pain) Qty: 90 3RF Discontinued polyethylene glycol 3350 17 gram/dose powder 238 g PO ONCE Qty: 238 0RF Rx Instructions: take per colonoscopy instructions bisacodyl [Dulcolax (bisacodyl)] 5 mg tablet,delayed release (DR/EC) 5 mg PO ONCE Qty: 4 0RF Rx Instructions: take per colonoscopy instructions Discharge Instructions Additional Instructions: DSU Colonoscopy Post- Op Instructions Instructions for Everyone who is given Anesthesia: For your safety, please do the following for the next twenty-four (24) hours: *Do Not operate a motor vehicle (car, truck, motorcycle, etc.) *Do Not drink alcoholic beverages or use any recreational drugs for the first 24 hours or while taking pain medications. The medications in your body may have a reaction that can be dangerous. *Do Not make any important decisions or sign any important papers. Findings: Polyps x2 Follow up: My office will send you a letter in 2 to 3 weeks time with the results of the pathology and when we want you to repeat the scope. 1. No lifting over 20 pounds or strenuous activity for the first 24 hours after your procedure. After 24 hours there are no restrictions on your activity but you may feel fatigued for a few days. 2. After you arrive home you may have a light meal and return to your normal diet as you can tolerate it without feeling sick to your stomach. 3. You may have a bloated, gaseous feeling in your belly (abdomen) after a colonoscopy. Passing gas and belching will help. Walking or lying down on your left side with your knees flexed may relieve the discomfort. Call the office at [phone] (Office) or [phone] (Hospital) right away if you notice any of the following: a.Vomiting of blood or ?coffee ground stools?. b.Rectal bleeding 1Tbsp, blood clots or continuous bleeding. c.Severe belly (abdominal) pain. d.A hard distended belly (abdomen) and an inability to pass gas. 4. Please don?t expect to have a normal BM (bowel movement) for 2-3 days after your procedure. 5. If there are questions regarding the findings of your procedure, please contact your doctor 6. If you are unable to contact your doctor with a problem, contact the hospital at [phone]. 7. Continue all your regular medications unless directed otherwise. I understand the above instructions and have no questions. Signature of Patient or Adult Escort Name of Responsible Adult Escort Signature of Nurse Date/Time Activity:: see above Diet:: see above Discharge Orders Discharge Orders: Discharge Order (Routine); Ordered 03/06/23 Ordered By: Rayna Schneider DS: Diagnosis Discharge Diagnosis (1) Adenomatous polyps: Status: Acute (2) Positive colorectal cancer screening using Cologuard test: Status: Acute
--- NOTE | 2023-03-05 20:05 | W.COLOREPORT ---
Date of service: 03/06/23 Time of Service: 09:37 Colonoscopy Report Date of procedure: 03/06/23 Pre-op diagnosis general: positive Cologuard Post-op diagnosis procedure note: other (Adenomatous polyps x2) Surgeon: Rayna Schneider Anesthesia Type: General LMA/ETT Estimated blood loss (mL): 1 Pathology: other Complications: None Disposition: same day Prep: Miralax/Dulcolax Retraction Time: 14 Procedure Description: After informed consent was obtained the patient was taken to the procedure room and placed in a left decubitous position. Monitors were applied and a time out was done. The patients name, date of , procedure, allergies to medications and metal in their body was reviewed. The patient was then sedated. Once sedated and comfortable a rectal exam was done. External exam was normal. Internal exam revealed a normal sphincter tone and no palpable masses. The scope was then introduced and retrofelexed. Grade 1 internal hemorrhoids were identified. The scope was then advanced to the cecum without difficulty. The TI and appendiceal orifice were identified. The prep was BBPS 3 in all segments for a total of 9. The scope was then slowly retracted over 14 minutes back into the rectum. She had a flat .5 cm polyp at 30 cm that is removed with a cold biopsy forcep. She had a 0.75 cm that is removed with a cold biting forcep. All specimens are retrieved and no bleeding is noted. She has no diverticula or AVMs noted. The mucosa is pink and healthy with a normal vascular pattern.. The scope was removed and the patient was woken up and taken back to Same day surgery in stable condition. The patient tolerated the procedure well and there were no immediate complications. Follow up: The patient should follow up in 5-7 years unless they develop changes in bowel habits or other new gastrointestinal complaints.
[2023-03-06 08:20] VITALS: BP 140/98; PULSE 111; RESP 18; TEMP 36.3; O2SAT 97
--- NOTE | 2023-03-06 08:34 | W.ANESPRE ---
General Info Date of Service Date Performed: 03/06/23 Height: 5 ft 6 in Weight: 71.8 kg Body Mass Index (BMI): 25.5 Surgical Procedure: Operation Date: 03/06/23 09:05 Proposed Procedure Side Surgeon joyce Schneider, DO Meds Allergies and Home Medications Allergies Allergy/AdvReac Type Severity Reaction Status Date / Time hydroxychloroquine Allergy Intermediate Hives, Verified 03/06/23 08:31 Home Medication Medication Instructions Recorded cholecalciferol (vitamin D3) 25 1,000 unit PO DAILY 09/12/13 mcg (1,000 unit) capsule folic acid 1 mg tablet 1 mg PO DAILY 03/19/17 clotrimazole 1 % topical cream 1 applic topical BID PRN 07/30/18 acetaminophen 500 mg tablet 1,000 mg (2 x 500 mg) PO Q8H PRN 08/07/18 pain #90 tabs mecobalamin (vitamin B12) 1,000 1,000 mcg PO DAILY 06/03/21 mcg chewable tablet dorzolamide 22.3 mg-timolol 6.8 1 drp ophthalmic (eye) BID 11/15/21 mg/mL eye drops albuterol sulfate 90 mcg/actuation 2 puff inhalation Q6H PRN 04/14/22 aerosol inhaler (Proventil HFA) shortness of breath or wheezing #8.5 grams lisinopril 20 mg tablet 20 mg PO DAILY #90 tabs 07/10/22 magnesium oxide 500 mg capsule 500 mg PO DAILY 12/30/22 fluticasone propionate 50 2 spray intranasal DAILY PRN 01/05/23 mcg/actuation nasal allergy symptoms #16 grams spray,suspension (Flonase Allergy Relief) Current Visit Medications: Current Medications Generic Name Dose Route Start Last Admin Trade Name Freq PRN Reason Stop Dose Admin Hyoscyamine Sulfate 0.125 mg 03/06/23 01:58 Hyoscyamine 0.125 Mg Sl/Oral/Chew SL 04/05/23 01:57 DIRECTED PRN Ringer's Solution 1,000 mls @ 80 mls/hr 03/06/23 06:00 IV 04/04/23 23:59 INFUSION RANDY IV Miscellaneous Supplies 1 each 03/06/23 06:00 Iv Access IV 04/04/23 23:59 DIRECTED [facility] Ondansetron HCl 4 mg 03/06/23 01:58 Ondansetron 4 Mg/2 Ml Vial IVP 04/06/23 08:57 Q4H PRN PRN Nausea / Vomiting Sodium Chloride 0 ml 03/06/23 06:00 Normal Saline Flush 10 Ml Syr IV 04/04/23 23:59 PRN PRN Sodium Chloride 0 ml 03/06/23 06:00 Normal Saline 10 Ml Vial IJ 04/04/23 23:59 DIRECTED PRN Sterile Water 0 ml 03/06/23 06:00 Water,Injection,Sterile 10 Ml Vial IJ 04/04/23 23:59 DIRECTED PRN PFSH Active Problems Active Problems: Problem Status Onset Code Pulmonary nodule R91.1 Compression fracture of L1 vertebra S32.010A Acute bilateral low back pain M54.50 Positive colorectal cancer screening using Cologuard test R19.5 Dupuytren's contracture of left hand M72.0 Sinusitis J32.9 Medicare welcome exam Z00.00 COVID-19 U07.1 Carpal tunnel syndrome on both sides G56.03 Neuropathy G62.9 Head pain R51.9 Lateral epicondylitis M77.10 Colon cancer screening Z12.11 Vaccine reaction T50.Z95A Pain in hip region after hip replacement M25.559, Z96.649 Allodynia R20.8 Near syncope R55 History of total left hip replacement Z96.642 Alcohol intake above recommended sensible limits Z72.89 Annual physical exam 07/16/15 Z00.00 Chronic ethmoidal sinusitis 01/18/18 J32.2 Chronic sphenoidal sinusitis 01/18/18 J32.3 Joint pain 10/22/05 M25.50 Vitamin D deficiency 06/18/08 E55.9 Smoker F17.200 Shingles 03/03/16 B02.9 Insomnia G47.00 Glaucoma 07/16/15 H40.9 Discoid lupus erythematosus 06/18/08 L93.0 Cervical pain (neck) 07/16/15 M54.2 Benign hypertension 08/17/12 I10 Medical History Medical History Benign neoplasm of ovary History of tobacco use Quit 2001 Menopausal syndrome Shoulder pain 04/23/05 right;xray normal; MPI=subacromial bursitis; prior humeral head injury; neg. 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 Stress due to illness of family member (07/13/17) Primary osteoarthritis of left hip (12/02/17) Allergy (01/08/15) Surgical History Surgical History (Updated 03/06/23 @ 08:33 by Binta Dejesus RN) History of left hip replacement Hx of ovarian cystectomy History of section H/O ovarian cystectomy H/O section section Tobacco Smoking/Tobacco Use Status: Current every day Tobacco Type: e-cigarettes Passive smoking exposure: Yes Alcohol Alcohol Intake: current Alcohol intake frequency: a few times a week Alcohol type: wine Details: 7 glasses of red wine/week Substance Use Substance use: Never Substance use type: does not use Vital Signs and Lab Results Vital Signs Most Recent Vital Signs in EMR: Most Recent Vital Signs Temp Pulse Resp BP Pulse Ox 36.3 C L 111 H 18 140/98 H 97 03/06/23 08:20 03/06/23 08:20 03/06/23 08:20 03/06/23 08:20 03/06/23 08:20 Lab Results Blood Type / Crossmatch: No Data to Display Complete Blood Count: No Data to Display Complete Metabolic Panel: No Data to Display Liver Function Panel: No Data to Display Coagulation Panel: No Data to Display Cardiac Panel: No Data to Display Arterial Blood Gas: No Data to Display Venous Blood Gas: No Data to Display Pancreas Panel: No Data to Display Thyroid Panel: No Data to Display Infectious Disease: No Data to Display Blood Cultures: No Data to Display Toxicology Panel: No Data to Display Imaging and Studies Imaging and Studies Study information below may be from another EMR and interpreted by another provider. Please see original notes in EMR for more complete details. Stress Test Summary: 03/16/17: normal with normal ef. Anesthesia Assessment and Plan Anesthesia History Personal History: No History of Anesthesia Complications Family History: No Family History of Anesthesia Complications Exercise Tolerance Exercise Tolerance: Metabolic Equivalents>4 Pertinent Negatives Pertinent Negatives: No Symptoms of GERD, No Major Cardiovascular Symptoms or Complaints and No Major Pulmonary Symptoms or Complaints Cardiac & Pulmonary Exam Cardiac Exam: Normal S1/S2 Heart Sounds Pulmonary Exam: Clear Bilateral Breath Sounds Implantable Cardiac Device Does patient have a Pacemaker or an ICD?: No Airway Exam Known Difficult Airway: No Mallampati Class: 2 Mouth Opening: Normal (> 3cm) Thyromental Distance: Greater than 3 cm Neck Range of Motion: Full ROM Neck Circumference: Normal Teeth Condition: Normal Dentition ASA Classification ASA Score: ASA 2 Emergency Case?: No NPO Status NPO Status: NPO Clears >2 hours, Solids >8 hours Anesthesia Plan Resuscitation Status: Full Code Anesthesia Technique: General Anesthesia Airway Planned: Natural Airway Monitors Used: Standard Monitors
[2023-03-06 08:35] VITALS: BMI 25.5
[2023-03-06] MEDS: Lactated Ringers 1,000 ML 80 ML IV (08:41)
--- NOTE | 2023-03-06 09:22 | BOWEL_PTH ---
PATIENT: Alejandra Barbosa LOC: [facility] U#:[id number] AGE/SX: 67/F ROOM: RE03/06/[address]: Rayna Schneider : 1955 BED: DIS: 03/06/2023 SPEC #: [id number] RECD: 03/06/23 12:52 STATUS: CARLA REHalle #: [id number] CONSUELO: 03/06/23 09:[address]: Rayna Schneider DEPT: Surgical Specimen RECD BY: Amanda Chavez ENTERED: 03/06/23 12:53 SP TYPE: Bowel OTHR DR: Silvia Nath MD, DC Tissues: 1 - BIOPSY BOWEL 2 - BIOPSY BOWEL Procedures: GROSS AND MICRO LEVEL 4 Comments: [id number]
[2023-03-06 09:34] VITALS: BP 131/70; PULSE 97; RESP 18; TEMP 36.3; O2SAT 98
--- NOTE | 2023-03-06 10:00 | W.ANESPOSTOP ---
Postoperative Evaluation Date, Time and Location Date Performed: 03/06/23 Time Performed: 10:00 Patient Location: Day Surgery Unit Vital Signs Most Recent Imported Vital Signs: Most Recent Vital Signs Temp Pulse Resp BP Pulse Ox 36.3 C L 97 H 18 131/70 98 03/06/23 09:34 03/06/23 09:34 03/06/23 09:34 03/06/23 09:34 03/06/23 09:34 Pain Score Most Recent Pain Score: Most Recent Pain Score Pain Level 0 03/06/23 08:20 Assessment Mental Status: Awake (Alert & Oriented to Patient Baseline) Airway and Respiratory Function: Patent airway with normal (patient baseline) respiratory exam Cardiovascular Function: Hemodynamically Stable Hydration Status: Adequately Hydrated Nausea & Vomiting: No Nausea or Vomiting Pain: Pt. Denies Any Pain Peripheral Nerve Block: Patient did not receive a nerve block
[2023-03-06 10:03] VITALS: BP 135/70; PULSE 80; RESP 18; TEMP 36.6; O2SAT 98
== END 2023-03-06 10:55 | disposition home or self-care (01) ==
LOC: SUR 08:07
PROVIDERS: PCP Family Medicine; Visit Provider Surgery
PROC: 0DJD8ZZ Inspection of Lower Intestinal Tract, Via Natural or Artificial Opening Endoscopic (ICD-10-PCS; CPT 45378; principal; 2023-03-06 09:00)
DX: Z12.11 Encounter for screening for malignant neoplasm of colon (principal); R19.5 Other fecal abnormalities; F17.290 Nicotine dependence, other tobacco product, uncomplicated; E55.9 Vitamin D deficiency, unspecified; D12.7 Benign neoplasm of rectosigmoid junction; K64.0 First degree hemorrhoids
CPT/HCPCS: 45380; 00123; 88305

== ENCOUNTER 2023-03-25 05:38 | Outpatient (CLI) | payer MEDICARE, BC, SELFPAY ==
[2023-03-25 13:05] LABS: Hemoglobin A1C 5.3 % (<5.7)
[2023-03-26 13:28] LABS: Albumin 59.1 % (55.8-66.1); Albumin g/dL 4.3 g/dL (3.6-5.2); Total Protein 7.3 g/dL (6.3-8.2)
== END 2023-03-25 05:39 | disposition home or self-care (01) ==
LOC: LOS 05:39
PROVIDERS: PCP Family Medicine; Visit Provider Family Medicine
DX: E11.9 Type 2 diabetes mellitus without complications (principal); G62.9 Polyneuropathy, unspecified
CPT/HCPCS: 36415; 83036; 84165

== ENCOUNTER → 2023-07-30 02:56 | Outpatient (CLI) | payer MEDICARE, BC, SELFPAY ==
--- NOTE | 2023-07-30 07:45 | DI.CT_ITS ---
Exam(s) CT CHEST WO EXAM: CT CHEST WO CLINICAL HISTORY: new pulmonary nodules,r91.1. TECHNIQUE: Multi planar reconstructions were performed. CONTRAST MATERIAL: None COMPARISON: CT CT CHEST LUNG CANCER SCREEN from 02/02/2023 FINDINGS: CHEST: LUNGS: Scarring in the lung apices is again noted. There are no new infiltrates nor pleural effusions. The previously described nodule in the left lowe r lobe is no longer seen. There are no new lung nodules. No new findings in the trachea and mainste m bronchi. No bronchiectasis. MEDIASTINUM: There is no obvious hilar nor mediastinal adenopathy. Visualized thyroid unremarkable.No obvious axillary adenopathy CARDIAC: Heart size is normal. There is no pericardial effusion.Caliber of the thoracic aorta is wit hin normal limits. VISUALIZED UPPER ABDOMEN:No adrenal masses nor splenomegaly evident. Cholelithiasis is noted. OSSEOUS: No significant osseous lesions.Previously described compression fracture of L1 appears uncha nged and Schmorl's node invagination in superior endplate of T12 is also unchanged. There are no new compression fractures nor osseous lesions evident.. IMPRESSION: 1. Compared to the prior CT scan of 02/02/2023 the previously described 5 millimeter left lower lobe nodule is no longer seen. There presently no concerning lung nodules nor pleural effusions nor intra thoracic adenopathy. 2. Stable appearance of the previously described L1 compression fracture and Schmorl's node invaginat ion in the superior endplate of T12. No new osseous findings. RADIATION DOSE DELIVERED: Total DLP DATA REPOSITORY: All CT scans at this facility are submitted to the National Radiology Data Registry (NRDR) Dose Index Registry (DIR) with the [employer] (ACR). RADIATION OPTIMIZATION: All CT scans at this facility use at least one of these dose optimization te chniques: automated exposure control; mA and/or kV adjustment per patient size (includes targeted exa ms where dose is matched to clinical indication); or iterative reconstruction.
== END ==
PROVIDERS: PCP Family Medicine; Visit Provider Family Medicine
DX: R91.1 Solitary pulmonary nodule (principal)
CPT/HCPCS: 71250

== ENCOUNTER 2023-12-30 10:43 | Outpatient (CLI) | payer MEDICARE, BC, SELFPAY ==
[2023-12-30 10:42] LABS: ALT 32 U/L (14-59); AST 19 U/L (15-37); Albumin 3.5 g/dL (3.4-5.0); Alkaline Phosphatase 102 U/L (46-116); Anion Gap 7.7 mmol/L (3-11); BUN 21 mg/dL (7-18); Bilirubin, Total 0.24 mg/dL (0.2-1.0); CO2 29.3 mmol/L (21.0-32.0); Calcium 9.6 mg/dL (8.5-10.1); Calculated LDL 159 mg/dL (<100); Chloride 105 mmol/L (98-107); Cholesterol 237 mg/dL (<200); Estimated GFR 61.75 (mL/min/1.73m2); Glucose 87 mg/dL (74-106); HDL Cholesterol 62 mg/dL (40-60); Potassium 4.2 mmol/L (3.5-5.1); Sodium 142 mmol/L (136-145); Total Protein 6.9 g/dL (6.4-8.2); Triglyceride 83 mg/dL (<150)
== END 2023-12-30 10:44 | disposition home or self-care (01) ==
LOC: LBO 10:46
PROVIDERS: PCP Family Medicine; Visit Provider Family Medicine
DX: I10 Essential (primary) hypertension (principal)
CPT/HCPCS: 36415; 80053; 80061

== ENCOUNTER 2024-02-09 01:15 | Outpatient (CLI) | payer MEDICARE, BC, SELFPAY ==
--- NOTE | 2024-02-09 06:30 | DI.MAMMO_ITS ---
Exam(s) MAMMO SCREENING EXAM: MAMMO SCREENING CLINICAL HISTORY: screening,Z12.39. TECHNIQUE: Bilateral full field digital CC and MLO mammographic images were obtained with 3D tomosyn thesis and utilizing computer aided detection (CAD). COMPARISON: Prior mammograms were reviewed. FINDINGS: There has been no significant change in the appearance and distribution of the fibroglandular tissue. There are no new findings in the immediate vicinity of biopsy marker in the right breast. There are no new spiculated masses nor malignant appearing microcalcification groups. There is no significant architectural distortion nor skin thickening-retraction. IMPRESSION: No radiographic evidence of malignancy. BI-RADS Category 1 - Negative Breast Density - Category B - Scattered areas of fibroglandular density Breast density Category C or D implies that the patient has dense breast tissue. Dense breast tissue can make it harder to find cancer on a mammogram. Dense breast tissue is also associated with an incr eased risk of breast cancer. This information about the result of the mammogram report was provided to the patient to raise their awareness. Use this report when you speak with the patient about their risks for breast cancer, which includes their family history. At that time, you may recommend additional screening tests (Ultrasoun d or MRI) as these tests may add significant information. A negative radiographic report should not delay biopsy if a dominant or clinically suspicious mass is present. Up to ten percent of cancers are not identified on mammography. A negative report may reinforce clinical impression. Adenosis and dense breasts may obscure an underlying neoplasm. False positive reports average 6 to 10%. Patient will receive a letter notifying them of these results.
== END 2024-02-09 01:35 ==
LOC: DI 01:15
PROVIDERS: PCP Family Medicine; Visit Provider Family Medicine
DX: Z12.31 Encounter for screening mammogram for malignant neoplasm of breast (principal)
CPT/HCPCS: 77063; 77067

== ENCOUNTER 2024-02-17 14:43 | Outpatient (CLI) | payer MEDICARE, BC, SELFPAY ==
[2024-02-17 23:32] LABS: Hepatitis C Ab w Rflx HCV PCR Negative (Negative)
== END 2024-02-17 14:44 | disposition home or self-care (01) ==
LOC: LBO 14:45
PROVIDERS: PCP Family Medicine; Visit Provider Family Medicine
DX: Z11.59 Encounter for screening for other viral diseases (principal)
CPT/HCPCS: 36415; 86803

== ENCOUNTER 2024-05-03 01:35 | Outpatient (CLI) | payer MEDICARE, BC, SELFPAY ==
--- NOTE | 2024-05-03 06:45 | DI.CT_ITS ---
Exam(s) CT SINUS WO EXAM: CT SINUS WO CLINICAL HISTORY: Evaluate for sinus disease,sjogren syndrome,head pain,chronic sinusitis. TECHNIQUE: Imaging Protocol: Axial computed tomography images with coronal and sagittal reformatted images were created and reviewed. No IV Contrast COMPARISON: CT SINUS CT WITHOUT CONTRAST from 11/27/[address] BRAIN CTA from 01/11/2021 FINDINGS: MAXILLARY SINUSES: No significant mucosal thickening nor fluid levels. There is no evidence of bone dehiscence. OSTIOMEATAL UNITS: Patent bilaterally ETHMOIDAL AIR CELLS: Well aerated right side. On the left side there is an opacified posterior air c ell noted medial to the posterior orbit, measuring 1.7 cm wide by 1.4 cm AP by 1.9 cm craniocaudal. This is unchanged from a brain CT scan of December 2020. It was not yet completely opacified on CT sca n of November 2017. The adjacent left sphenoid sinus is well aerated (was previously opacified on CT sca n of November 2017 but was clear on head CT scan of 01/11/2021.) SPHENOID SINUSES: Presently well aerated. No mucosal thickening nor fluid levels. FRONTAL SINUSES: Well aerated. No mucosal thickening nor fluid levels. NASAL SEPTUM AND TURBINATES:Nasal septum is midline with no evidence of significant nasal septal spur . There is aeration-deepa bullosa of both middle turbinates, slightly more prominent on the right si de. These do not appear obstructive. IMPRESSION: 1. No evidence of acute sinusitis. 2. There is complete opacification of the most posterior left-sided ethmoidal air cell again noted, similar to prior imaging of 01/11/2021 (brain CT scan at that time). This measures 17 x 14 x 19 mm a nd appears similar to 01/11/2021. Adjacent sphenoid sinus is clear. There is no dehiscence of the p osterior medial wall of the ipsilateral orbit at this level. There is a radiation of both middle turbinates noted RADIATION DOSE DELIVERED: 94.05mGy.cm Total DLP DATA REPOSITORY: All CT scans at this facility are submitted to the National Radiology Data Registry (NRDR) Dose Index Registry (DIR) with the [employer] (ACR). RADIATION OPTIMIZATION: All CT scans at this facility use at least one of these dose optimization te chniques: automated exposure control; mA and/or kV adjustment per patient size (includes targeted exa ms where dose is matched to clinical indication); or iterative reconstruction.
== END 2024-05-03 01:55 ==
LOC: DI 01:35
PROVIDERS: PCP Family Medicine; Visit Provider Otolaryngology
DX: J32.9 Chronic sinusitis, unspecified (principal); R51.9 Headache, unspecified; M35.00 Sjogren syndrome, unspecified
CPT/HCPCS: 70486

== ENCOUNTER 2024-08-27 15:32 | Outpatient (REF) | payer MEDICARE, BC, SELFPAY | END 2024-08-27 15:33 | disposition home or self-care (01) | LOC: LBN 15:32 | PROVIDERS: PCP Family Medicine; Visit Provider Nurse Practitioner Family | DX: N30.01 Acute cystitis with hematuria (principal) | CPT/HCPCS: 87086 ==

== ENCOUNTER 2025-02-13 09:16 | Outpatient (CLI) | payer MEDICARE, BC, SELFPAY ==
[2025-02-13 14:18] LABS: ALT 27 U/L (14-59); AST 22 U/L (15-37); Albumin 3.7 g/dL (3.4-5.0); Alkaline Phosphatase 123 U/L (46-116); Anion Gap 5.6 mmol/L (3-11); BUN 11 mg/dL (7-18); Bilirubin, Total 0.4 mg/dL (0.2-1.0); CO2 27.4 mmol/L (21.0-32.0); Calcium 10.3 mg/dL (8.5-10.1); Chloride 104 mmol/L (98-107); Estimated GFR 69.64 (mL/min/1.73m2); Glucose 101 mg/dL (74-106); Potassium 4.5 mmol/L (3.5-5.1); Sodium 137 mmol/L (136-145); Total Protein 7.3 g/dL (6.4-8.2)
== END 2025-02-13 09:17 | disposition home or self-care (01) ==
PROVIDERS: PCP Family Medicine; Referring Provider Family Medicine; Visit Provider Family Medicine
DX: I10 Essential (primary) hypertension (principal)
CPT/HCPCS: 36415; 80053

== ENCOUNTER 2025-03-02 04:23 | Outpatient (CLI) | payer MEDICARE, BC, SELFPAY ==
--- NOTE | 2025-03-02 07:00 | DI.CTLCSR_ITS ---
Exam(s) CT CHEST LUNG CANCER SCREEN EXAM: CT CHEST LUNG CANCER SCREEN CLINICAL HISTORY: Screening for lung cancer,[employer], F17.210 TECHNIQUE: Imaging Protocol: Axial computed tomography images with coronal and sagittal reformatted images were created and reviewed. Lung Computer Aided Detection (CAD) was utilized. COMPARISON: CT CT CHEST LUNG CANCER SCREEN from 02/02/[address] CHEST WO from 07/30/2023 FINDINGS: Tracheobronchial tree: Patent where visualized. No bronchiectasis. Pulmonary parenchyma: No consolidation or dominant measurable mass. No architectural distortion. There is a calcified granuloma in the right upper lobe. Lung Nodules: There are no suspicious pulmonary nodules. Mediastinum and Zeina: No dominant adenopathy or fluid collection. The esophagus is unremarkable. Thyroid gland: Unremarkable. Lymph nodes: Unremarkable. Pleura: No effusion or pneumothorax. Heart: The heart is not dilated. Mild coronary artery calcification is present. No pericardial effusion. Aorta: Thoracic aorta non-dilated.Atherosclerotic calcification is present. Upper abdomen: Unremarkable. Soft Tissues: Unremarkable. Bones: Within normal limits. There is a stable compression deformity of L1. IMPRESSION: There are no suspicious pulmonary nodules. Lung RADS Cat 1 - Negative: No nodules and definitely benign nodules Lung-RADS 1.0 CATEGORIES: Category 0 - Prior chest CT exam(s) being located for comparison. Category 1 - Annual screening in 12 months. No nodules or definitely benign nodules. Category 2 - Annual screening in 12 months. Benign appearance. Nodules with low likelihood of becoming active cancer. Category 3 - 6-month follow-up. Probably benign. Short-term follow-up suggested. Nodules with low likelihood of becoming active cancer. Category 4A - 3-month follow-up and CT/PET if >8 mm in size. Suspicious finding. Findings which require additional testing. Category 4B - Findings which require additional testing and tissue sampling. Suspicious finding. Category 4X - Category 3 or 4 nodules with additional features or imaging findings that increases the suspicion of malignancy. Modifier S- Potentially clinically significant finding. (Non lung cancer) RADIATION DOSE DELIVERED: 24.58mGy.cm Total DLP 24.58mGy.cmTotal DLP DATA REPOSITORY: All CT scans at this facility are submitted to the National Radiology Data Registry (NRDR) Dose Index Registry (DIR) with the [employer] ([employer]). RADIATION OPTIMIZATION: All CT scans at this facility use at least one of these dose optimization techniques: automated exposure control; mA and/or kV adjustment per patient size (includes targeted exams where dose is matched to clinical indication); or iterative reconstruction.
--- NOTE | 2025-03-02 13:39 | DI.RAD_ITS ---
Exam(s) XR THORACIC SPINE COMPLETE EXAM: XR THORACIC SPINE COMPLETE CLINICAL HISTORY: thoracic back pain,M54.6. TECHNIQUE: 2D digital imaging was performed. COMPARISON: No exams were available for comparison FINDINGS: 3 views No evidence of fracture or listhesis nor significant thoracic scoliosis. Bone density is age-appropriate. No osseous lesions. No prominent disc space narrowing. No significant ligament calcification. No abnormal widening of the paraspinal lines. IMPRESSION: No acute osseous finding the in the thoracic spinal column DATA REPOSITORY: RADIATION DOSE DELIVERED:
--- NOTE | 2025-03-02 13:40 | DI.RAD_ITS ---
Exam(s) XR LUMBAR SPINE COMPLETE EXAM: XR LUMBAR SPINE COMPLETE CLINICAL HISTORY: LOW BACK PAIN,M54.50. TECHNIQUE: 2D digital imaging was performed. COMPARISON: CR XR LUMBAR SPINE COMPLETE from 02/02/2023 CR XR DEXA BONE DENSITY W/WO WILLARD from 02/19/2023 FINDINGS: Five views Again noted is L1 compression fracture which appears stable from January 2023. There are no new fractures nor listhesis nor significant disc space narrowing. Some moderate multilevel facet arthropathy is noted. However, there is more severe facet arthropathy on the right side at L5-S1 level again noted. There is no scoliosis. No osseous lesions. Left hip prosthesis is noted IMPRESSION: Advanced right-sided facet arthropathy at L5-S1 again noted. Otherwise moderate multilevel facet arthropathy. Stable L1 compression fracture. No new fractures. No disc space narrowing. DATA REPOSITORY: RADIATION DOSE DELIVERED:
== END 2025-03-02 04:43 ==
LOC: DI 04:23
PROVIDERS: PCP Family Medicine; Visit Provider Family Medicine
DX: Z12.2 Encounter for screening for malignant neoplasm of respiratory organs (principal); F17.210 Nicotine dependence, cigarettes, uncomplicated; M51.371 Other intervertebral disc degeneration, lumbosacral region with lower extremity pain only
CPT/HCPCS: 71271; 72072; 72110